=== PATIENT | female | born 1970 ===

== ENCOUNTER 2017-07-08 14:04 | Emergency (ER) | payer MEDICAID, OTHER ==
[2017-07-08 14:35] VITALS: BMI 20.9
[2017-07-08 14:40] VITALS: TEMP 98.4; O2SAT 100
--- NOTE | 2017-07-08 15:23 | ED PDOC ---
Arrival/HPI - General Chief Complaint: Cough, Cold, Congestion Time Seen by Provider: 07/08/17 14:40 Historian: Patient - History of Present Illness Narrative History of Present Illness (Text): 07/08/17 15:20 46yo female with PMHx of hypertension and hyperthyroid who present with 3weeks history of nonproductive cough, nasal congestion and facial pressure. Started having chest pain with cough few days ago. She did not take any medication for here symptoms. She denies fever, chills, sick contact, travel, LE edema, calf pain, dizziness, nausea, vomiting, sore throat, any other complaint. Past Medical History - Provider Review Nursing Documentation Reviewed: Yes - Infectious Disease Hx of Infectious Diseases: None - Tetanus Immunization Tetanus Immunization: Unknown - Past Medical History Past Medical History: No Previous - Cardiac Hx Cardiac Disorders: Yes Hx Hypertension: Yes (non med compliant) - Pulmonary Hx Respiratory Disorders: No - Neurological Hx Neurological Disorder: No - HEENT Hx HEENT Disorder: No - Renal Hx Renal Disorder: No - Endocrine/Metabolic Hx Endocrine Disorders: Yes Hx Hyperthyroidism: Yes - Hematological/Oncological Hx Blood Disorders: No - Integumentary Hx Dermatological Disorder: No - Musculoskeletal/Rheumatological Hx Musculoskeletal Disorders: No Hx Falls: No - Gastrointestinal Hx Gastrointestinal Disorders: No - Genitourinary/Gynecological Hx Genitourinary Disorders: No - Psychiatric Hx Psychophysiologic Disorder: Yes Hx Anxiety: Yes Hx Depression: Yes Hx Substance Use: No - Past Surgical History Past Surgical History: No Previous - Anesthesia Hx Anesthesia: Yes Hx Anesthesia Reactions: No Hx Malignant Hyperthermia: No - Suicidal Assessment Feels Threatened In Home Enviroment: Yes Family/Social History - Physician Review Nursing Documentation Reviewed: Yes Family/Social History: Unknown Family HX Smoking Status: Never Smoked Hx Alcohol Use: No Hx Substance Use: No Hx Substance Use Treatment: No Allergies/Home Meds Allergies/Adverse Reactions: Allergies No Known Allergies Allergy (Verified 01/15/16 01:50) Home Medications: Home Meds Medication Instructions Recorded Confirmed Metoprolol Tartrate [Lopressor] 1 tab PO BID 07/08/17 07/08/17 methIMAzole [Tapazole] 1 tab PO BID 07/08/17 07/08/17 Review of Systems - Physician Review All systems were reviewed & negative as marked: Yes - Review of Systems Constitutional: Normal Eyes: Normal ENT: Sinus Congestion Respiratory: Cough Cardiovascular: Normal Gastrointestinal: Normal Genitourinary Female: Normal Musculoskeletal: Normal Skin: Normal Neurological: Normal Endocrine: Normal Hemo/Lymphatic: Normal Psychiatric: Normal Physical Exam Vital Signs Reviewed: Yes Vital Signs Temp Pulse Resp BP Pulse Ox 07/08/17 14:39 98.4 F 98 H 18 127/88 100 Temperature: Afebrile Blood Pressure: Normal Pulse: Regular Respiratory Rate: Normal Appearance: Positive for: Well-Appearing, Non-Toxic, Comfortable Pain Distress: None Mental Status: Positive for: Alert and Oriented X 3 - Systems Exam Head: Present: Atraumatic, Normocephalic Pupils: Present: PERRL Extroacular Muscles: Present: EOMI Conjunctiva: Present: Normal Mouth: Present: Moist Mucous Membranes Pharnyx: Present: Normal. No: ERYTHEMA, EXUDATE Nose (Internal): Present: Normal Inspection, Other (Tenderness over b/l maxillary sinus) Neck: Present: Normal Range of Motion Respiratory/Chest: Present: Clear to Auscultation, Good Air Exchange. No: Respiratory Distress, Accessory Muscle Use, Wheezes, Decreased Breath Sounds, Rales, Retracting, Rhonchi, Tachypneic Cardiovascular: Present: Regular Rate and Rhythm, Normal S1, S2. No: Murmurs Abdomen: Present: Normal Bowel Sounds. No: Tenderness, Distention, Peritoneal Signs Back: Present: Normal Inspection Upper Extremity: Present: Normal Inspection. No: Cyanosis, Edema Lower Extremity: Present: Normal Inspection. No: Edema Neurological: Present: GCS=15, CN II-XII Intact, Speech Normal Skin: Present: Warm, Dry, Normal Color. No: Rashes Psychiatric: Present: Alert, Oriented x 3, Normal Insight, Normal Concentration Medical Decision Making ED Course and Treatment: 07/08/17 16:12 Pt presented for stated history. Hemodynamically stable and in no distress. CXR NAD. Pt will be tx and Dc home with Zpack and antitussive. Referred to her PMD/ clinic. TRT ED for any new or worsening symptoms. - RAD Interpretation Radiology Orders: 07/08/17 14:44 CHEST TWO VIEWS (PA/LAT) [RAD] Stat - Medication Orders Current Medication Orders: Discontinued Medications Azithromycin (Zithromax) 500 mg PO STAT STA PRN Reason: Protocol Stop: 07/08/17 16:11 Ibuprofen (Motrin Tab) 600 mg PO STAT STA Stop: 07/08/17 15:21 Last Admin: 07/08/17 15:29 Dose: 600 mg MAR Pain/Vitals Document 07/08/17 15:29 HI (Rec: 07/08/17 15:29 HI [id number]) Pain Reassessment Is This A Pain ReAssessment? No Disposition/Present on Arrival - Present on Arrival Any Indicators Present on Arrival: No History of DVT/PE: No History of Uncontrolled Diabetes: No Urinary Catheter: No History of Decub. Ulcer: No History Surgical Site Infection Following: None - Disposition Have Diagnosis and Disposition been Completed?: Yes Diagnosis: Upper respiratory infection, Headache Disposition: HOME/ ROUTINE Disposition Time: 16:15 Patient Plan: Discharge Condition: STABLE Discharge Instructions (ExitCare): Upper Respiratory Infection (ED) Additional Instructions: Follow up with your doctor Return to ED for any new or worsening symptoms Prescriptions: Azithromycin [Zithromax] 250 mg PO DAILY #4 tab Benzonatate [Tessalon Perle] 100 mg PO TID #30 capsule Ibuprofen [Motrin Tab] 600 mg PO Q6 #20 tab Referrals: PCP,NO [Primary Care Provider] - [place] up with primary [facility] [place] - Follow up with primary Forms: [employer] [facility] ([place])
--- NOTE | 2017-07-08 16:07 | RAD ---
HISTORY: cough COMPARISON: 01/15/2016 TECHNIQUE: Chest PA and lateral FINDINGS: LUNGS: No active pulmonary disease. PLEURA: No significant pleural effusion identified. No pneumothorax apparent. CARDIOVASCULAR: Normal. OSSEOUS STRUCTURES: No significant abnormalities. VISUALIZED UPPER ABDOMEN: Normal. OTHER FINDINGS: None. IMPRESSION: No active disease.
[2017-07-08] MEDS ORDERED: guaiFENesin 200 mg/10 ml Syrup UD PO STA (16:12)
[2017-07-08 16:54] VITALS: BP 125/82; PULSE 82; RESP 16
== END 2017-07-08 16:40 | disposition home or self-care (01) ==
LOC: ED 14:04
DX: J06.9 Acute upper respiratory infection, unspecified (principal); R51 Headache; I10 Essential (primary) hypertension; E05.90 Thyrotoxicosis, unspecified without thyrotoxic crisis or storm

== ENCOUNTER 2018-02-17 09:44 | Emergency (ER) | payer BC, MEDICAID ==
[2018-02-17 09:46] VITALS: BMI 20.9
[2018-02-17 10:13] VITALS: RESP 18
--- NOTE | 2018-02-17 11:05 | ED PDOC ---
Arrival/HPI - General Historian: Patient - History of Present Illness Time/Duration: > week (2 weeks) Symptom Onset: Gradual Symptom Course: Worsening Quality: Pressure, Fullness - General Chief Complaint: ENT Problem Time Seen by Provider: 02/17/18 10:54 - History of Present Illness Narrative History of Present Illness (Text): 02/17/18 10:59 47 year old with PMH of anxiety presents to the ED c/o L ear fullness and hearing loss x 2 weeks. Pt states she has had a gradual worsening of ear fullness for the last two weeks without pain. She has never experienced these symptoms before. Her right ear is not bothering her. Denies recent viral illness , fever, chills, ear pain, tinnitus, sinus pain, sore throat, SOB, rhinorrhea, vertigo, or dizziness. 02/17/18 11:36 (Jessica Bergeron) Past Medical History - Provider Review Nursing Documentation Reviewed: Yes - Infectious Disease Hx of Infectious Diseases: None - Tetanus Immunization Tetanus Immunization: Unknown - Reproductive Menopause: No - Past Medical History Past Medical History: No Previous - Cardiac Hx Cardiac Disorders: Yes Hx Hypertension: Yes (non med compliant) - Pulmonary Hx Respiratory Disorders: No - Neurological Hx Neurological Disorder: No - HEENT Hx HEENT Disorder: No - Renal Hx Renal Disorder: No - Endocrine/Metabolic Hx Endocrine Disorders: Yes Hx Hyperthyroidism: Yes - Hematological/Oncological Hx Blood Disorders: No - Integumentary Hx Dermatological Disorder: No - Musculoskeletal/Rheumatological Hx Musculoskeletal Disorders: No Hx Falls: No - Gastrointestinal Hx Gastrointestinal Disorders: No - Genitourinary/Gynecological Hx Genitourinary Disorders: No - Psychiatric Hx Psychophysiologic Disorder: Yes Hx Anxiety: Yes Hx Depression: Yes Hx Substance Use: No - Past Surgical History Past Surgical History: No Previous - Anesthesia Hx Anesthesia: Yes Hx Anesthesia Reactions: No Hx Malignant Hyperthermia: No - Suicidal Assessment Feels Threatened In Home Enviroment: Yes Family/Social History - Physician Review Nursing Documentation Reviewed: Yes Family/Social History: No Known Family HX Smoking Status: Never Smoked Hx Alcohol Use: No Hx Substance Use: No Hx Substance Use Treatment: No Allergies/Home Meds Allergies/Adverse Reactions: Allergies No Known Allergies Allergy (Verified 01/15/16 01:50) Home Medications: Home Meds Medication Instructions Recorded Confirmed No Known Home Med 02/17/18 02/17/18 Review of Systems - Review of Systems Constitutional: Normal. absent: Fevers Eyes: Normal ENT: Hearing Changes (L ear hearing loss), Other (L Ear fullness). absent: Tinnitus, TMJ Pain, Sore Throat, Rhinorrhea, Epistaxis, Sinus Congestion Respiratory: Normal Cardiovascular: Normal Skin: Normal Neurological: absent: Dizziness, Disequilibrium Hemo/Lymphatic: absent: Adenopathy Physical Exam Vital Signs Reviewed: Yes Temperature: Afebrile Blood Pressure: Hypertensive (Anxiety) Pulse: Regular Respiratory Rate: Normal Appearance: Positive for: Well-Appearing, Non-Toxic, Other (Anxious) Pain Distress: None - Systems Exam Head: Present: Atraumatic Conjunctiva: Present: Normal Ears: Present: Other (R ear: TM non-erythematous, non bulging, normal cone of light. canal non-eematous, non-erythmeatous. free of cerumen. L ear: Cerumen impaction obscuring view of TM. Canal non-edematous, non-erythematous. ) Mouth: Present: Moist Mucous Membranes Pharnyx: Present: Normal Nose (Internal): Present: Normal Inspection, Moist. No: Rhinorrhea Neck: Present: Normal Range of Motion Respiratory/Chest: Present: Clear to Auscultation, Good Air Exchange. No: Respiratory Distress, Accessory Muscle Use Cardiovascular: Present: Regular Rate and Rhythm, Normal S1, S2. No: Murmurs Neurological: Present: Gait Normal Skin: Present: Warm, Dry, Normal Color. No: Rashes Lymphatic: No: Cervical Adenopathy Psychiatric: Present: Alert, Oriented x 3, Normal Insight, Normal Concentration , Anxious Vital Signs Temp Pulse Resp BP Pulse Ox 02/17/18 11:21 80 18 159/100 H 100 02/17/18 10:09 98.6 F 78 18 204/113 H 99 Medical Decision Making Re-evaluation Time: 11:16 Reassessment Condition: Improved ED Course and Treatment: 02/17/18 11:25 Disimpacted left ear impacted cerumen with irrigation with excellent results. ( Harley Alvarez) 02/17/18 11:12 47 y/o female presenting with L ear fullness and hearing loss x 2 weeks. Denies fever, ear pain, URI sx, tinnitus, vertigo, dizziness. Found to have L-sided cerumen impaction. Dr. Alvarez successfully performed Cerumen disimpaction on L ear using peroxide and normal saline mix 50/50. Pt tolerated well, no vertigo or dizziness. Will retake blood pressure before discharge. BP retake: 159/100. BP has significantly decreased. Discussed possible complications of chronic HTN with pt, advised her to followup with Dr. Ibrahim' s clinic for BP checks and possible prescription for anti-hypertensive medication. Pt educated on signs and symptoms of cerumen impaction. Pt told to return if high fever, pain develops, or for sudden hearing loss. Followup with Dr. Ibrahim's clinic for BP checks. [employer] card given. 02/17/18 11:51 (Jessica Bergeron) Disposition/Present on Arrival - Present on Arrival Any Indicators Present on Arrival: No History of DVT/PE: No History of Uncontrolled Diabetes: No Urinary Catheter: No History of Decub. Ulcer: No History Surgical Site Infection Following: None - Disposition Have Diagnosis and Disposition been Completed?: Yes Disposition Time: 10:40 Patient Plan: Discharge - Disposition Diagnosis: Cerumen impaction, Elevated blood pressure reading Disposition: HOME/ ROUTINE Patient Problems: Current Active Problems Problem Status Onset Cerumen impaction Acute Elevated blood pressure reading Acute Condition: IMPROVED Discharge Instructions (ExitCare): High Blood Pressure in Adults, Ear Wax Impaction Print Language: PALAUAN Additional Instructions: Return if high fevers, severe headache, vomiting, sudden loss of hearing, ear pain, severe vertigo. Followup with [facility] for blood pressure checks and as needed. Followup with ENT as needed. Referrals: Jerri Ibrahim MD [Medical Doctor] - Follow up with primary [employer] [Outside] - Follow up with primary Philipp Rojas DO [Staff Provider] - Follow up with primary Forms: WORK NOTE, [facility] (Citizen Of [place])
[2018-02-17 11:22] VITALS: BP 159/100; PULSE 80; O2SAT 100
[2018-02-17 11:55] VITALS: TEMP 98.5
== END 2018-02-17 11:57 | disposition home or self-care (01) ==
LOC: ED 09:44
DX: H61.22 Impacted cerumen, left ear (principal); I10 Essential (primary) hypertension; Z91.19 Patient's noncompliance with other medical treatment and regimen

== ENCOUNTER 2018-02-18 22:36 | Observation (INO) | payer MEDICAID ==
[2018-02-18 22:43] VITALS: BMI 20.1
--- NOTE | 2018-02-19 01:49 | ED PDOC ---
Arrival/HPI - General Chief Complaint: High Blood Pressure Time Seen by Provider: 02/18/18 22:46 Historian: Patient - History of Present Illness Narrative History of Present Illness (Text): 02/19/18 04:06 47 year old female, with no significant past medical history, who presents to the emergency department complaining of headache discomfort and high blood pressure. Patient notes she is non-compliant with her medication because it is too expensive. Patient denies any fevers, chills, chest pain, shortness of breath, abdominal pain, nausea, vomiting, diarrhea, back pain, neck pain, urinary symptoms, dizziness, or any other complaint. Time/Duration: Prior to Arrival Symptom Course: Unchanged Activities at Onset: Light Context: Home Past Medical History - Provider Review Nursing Documentation Reviewed: Yes - Infectious Disease Hx of Infectious Diseases: None - Tetanus Immunization Tetanus Immunization: Unknown - Past Medical History Past Medical History: No Previous - Cardiac Hx Cardiac Disorders: Yes Hx Hypertension: Yes (non med compliant) - Pulmonary Hx Respiratory Disorders: No - Neurological Hx Neurological Disorder: No - HEENT Hx HEENT Disorder: No - Renal Hx Renal Disorder: No - Endocrine/Metabolic Hx Endocrine Disorders: Yes Hx Hyperthyroidism: Yes - Hematological/Oncological Hx Blood Disorders: No - Integumentary Hx Dermatological Disorder: No - Musculoskeletal/Rheumatological Hx Musculoskeletal Disorders: No Hx Falls: No - Gastrointestinal Hx Gastrointestinal Disorders: No - Genitourinary/Gynecological Hx Genitourinary Disorders: No - Psychiatric Hx Psychophysiologic Disorder: Yes Hx Anxiety: Yes Hx Depression: Yes Hx Substance Use: No - Past Surgical History Past Surgical History: No Previous - Anesthesia Hx Anesthesia: Yes Hx Anesthesia Reactions: No Hx Malignant Hyperthermia: No - Suicidal Assessment Feels Threatened In Home Enviroment: Yes Family/Social History - Physician Review Nursing Documentation Reviewed: Yes Family/Social History: Unknown Family HX Smoking Status: Never Smoked Hx Alcohol Use: No Hx Substance Use: No Hx Substance Use Treatment: No Allergies/Home Meds Allergies/Adverse Reactions: Allergies No Known Allergies Allergy (Verified 01/15/16 01:50) Home Medications: Home Meds Medication Instructions Recorded Confirmed No Known Home Med 02/17/18 02/18/18 Review of Systems - Physician Review All systems were reviewed & negative as marked: Yes - Review of Systems Constitutional: Normal Eyes: Normal ENT: Normal Respiratory: Normal. absent: SOB, Cough Cardiovascular: Normal. absent: Chest Pain Gastrointestinal: Normal. absent: Abdominal Pain Genitourinary Female: Normal. absent: Dysuria, Frequency Musculoskeletal: Normal. absent: Back Pain, Neck Pain Skin: Normal. absent: Rash Neurological: Headache. absent: Dizziness Endocrine: Normal Hemo/Lymphatic: Normal Psychiatric: Normal Physical Exam Vital Signs Reviewed: Yes Vital Signs Temp Pulse Resp BP Pulse Ox 02/19/18 04:32 82 16 139/84 99 02/19/18 03:08 186/105 H 02/19/18 01:35 89 187/118 H 02/19/18 01:27 98.2 F 92 H 18 187/118 H 99 02/18/18 22:44 98.4 F 102 H 18 187/108 H 98 Temperature: Afebrile Blood Pressure: Hypertensive Pulse: Tachycardic Respiratory Rate: Normal Appearance: Positive for: Well-Appearing, Non-Toxic, Comfortable Pain Distress: None Mental Status: Positive for: Alert and Oriented X 3 - Systems Exam Head: Present: Atraumatic, Normocephalic Pupils: Present: PERRL Extroacular Muscles: Present: EOMI Conjunctiva: Present: Normal Mouth: Present: Moist Mucous Membranes Neck: Present: Normal Range of Motion Respiratory/Chest: Present: Clear to Auscultation, Good Air Exchange. No: Respiratory Distress, Accessory Muscle Use Cardiovascular: Present: Regular Rate and Rhythm, Normal S1, S2. No: Murmurs Abdomen: No: Tenderness, Distention, Peritoneal Signs Back: Present: Normal Inspection Upper Extremity: Present: Normal Inspection. No: Cyanosis, Edema Lower Extremity: Present: Normal Inspection. No: Edema Neurological: Present: GCS=15, CN II-XII Intact, Speech Normal Skin: Present: Warm, Dry, Normal Color. No: Rashes Psychiatric: Present: Alert, Oriented x 3, Normal Insight, Normal Concentration Medical Decision Making ED Course and Treatment: 02/19/18 01:49 Impression: 47 year old female presents to the emergency department complaining of headache discomfort and hypertension. Plan: -- Head CT -- EKG -- Catapres -- Tylenol -- Reassess and disposition Progress Notes: CT Head reviewed, shows: IMPRESSION: No acute CT intracranial abnormalities 02/19/18 04:50 Case discussed with house physician, dr. rivas, and medical records coordinator, who is aware and agrees with plan. Given pt's noncompliance with medication, inability to pay for medication, and under controlled htn, pt will be placed on observation/social service consult. - Lab Interpretations Lab Results: 02/19/18 01:30 02/19/18 01:30 Lab Results 02/19/18 01:30: WBC 7.0 D, RBC 4.47, Hgb 10.4 L, Hct 33.3 L, MCV 74.5 L, MCH 23.3 L, MCHC 31.2, RDW 18.5 H, Plt Count 639 H, MPV 8.7 02/19/18 01:30: Sodium 140, Potassium 3.6, Chloride 103, Carbon Dioxide 25, Anion Gap 15, BUN 7, Creatinine 0.5 L, Est GFR ( Amer) > 60, Est GFR (Non -Af Amer) > 60, Random Glucose 101, Calcium 9.5, Total Bilirubin 0.3, AST 39 H, ALT 32, Alkaline Phosphatase 163 H, Total Protein 7.6, Albumin 4.2, Globulin 3.4 , Albumin/Globulin Ratio 1.2 - RAD Interpretation Radiology Orders: 02/18/18 23:19 HEAD W/O CONTRAST [CT] Stat - Medication Orders Current Medication Orders: Discontinued Medications Acetaminophen (Tylenol 325mg Tab) 650 mg PO STAT STA Stop: 02/19/18 02:39 Last Admin: 02/19/18 02:44 Dose: 650 mg [facility] Pain/Vitals Document 02/19/18 02:44 (Rec: 02/19/18 02:44 [id number] Pain Reassessment Is This A Pain ReAssessment? Yes Sleep Is patient sleeping during reassessment? No Presence of Pain Presence of Pain Yes Pain Scale Used Pain Scale Used Numeric Clonidine HCl (Catapres) 0.2 mg PO STAT STA Stop: 02/18/18 23:19 Last Admin: 02/19/18 01:35 Dose: 0.2 mg ADAM Pulse and Blood Pressure Document 02/19/18 01:35 (Rec: 02/19/18 01:36 [id number] Pulse Pulse Rate (60-90 beats/min) 89 Blood Pressure Blood Pressure (100/60-150/90 mm Hg) 187/118 Clonidine HCl (Catapres) 0.2 mg PO STAT STA Stop: 02/19/18 04:10 - Scribe Statement The provider has reviewed the documentation as recorded by the Scribe Farzaneh Ayala All medical record entries made by the Scribe were at my direction and personally dictated by me. I have reviewed the chart and agree that the record accurately reflects my personal performance of the history, physical exam, medical decision making, and the department course for this patient. I have also personally directed, reviewed, and agree with the discharge instructions and disposition. Disposition/Present on Arrival - Present on Arrival Any Indicators Present on Arrival: No History of DVT/PE: No History of Uncontrolled Diabetes: No Urinary Catheter: No History of Decub. Ulcer: No History Surgical Site Infection Following: None - Disposition Have Diagnosis and Disposition been Completed?: Yes Diagnosis: Uncontrolled hypertension, Headache Disposition: HOSPITALIZED Disposition Time: 04:49 Condition: STABLE Referrals: Deyanira Wilkins MD [Primary Care Provider] - Follow up with primary Forms: [employer] [facility] ([place])
[2018-02-19 02:07] LABS: ALB/GLOB RATIO 1.2 (1.1-1.8); ALBUMIN 4.2 g/dL (3.0-4.8); ALT/SGPT 32 U/L (7-56); AST/SGOT 39 U/L (14-36); BLOOD UREA NITROGEN 7 mg/dL (7-21); CALCIUM 9.5 mg/dL (8.4-10.5); GFR NON-AFRICAN AMERICAN > 60
[2018-02-19 02:15] LABS: HEMOGLOBIN 10.4 g/dL (12.0-16.0); MEAN CELL VOLUME 74.5 fl (80.0-105.0); MEAN CORPUSCULAR HEMOGLOBIN 23.3 pg (25.0-35.0); MEAN CORPUSCULAR HGB CONC 31.2 g/dl (31.0-37.0); MEAN PLATELET VOLUME 8.7 fl (7.0-11.0); RBC 4.47 10^6/uL (3.5-6.1); RED CELL DISTRIBUTION WIDTH 18.5 % (11.5-14.5)
--- NOTE | 2018-02-19 04:48 | CP.PCM.HP ---
<Joanne Fernandez - Last Filed: 02/19/18 04:44> History of Present Illness - History of Present Illness History of Present Illness: PGY-3 H&P for Dr Melissa Stanton CC: headache and high blood pressure Patient is a 47 y/o with PMH of htn complaining of few days of headache and high blood pressure. Patient states she run out of her Lopressor and was not able to afford the medication. Admits to headache, and fatigue. Denies dizziness , lightheadedness, no nausea, vomiting or diarrhea. No fever or chills. No abdominal pain, denies cp, or sob. No changes in vision, no floaters. Denies photophobia. Denies weakness. In the ED, BP was 187/108, patient was given 0.2 mg clonidine x1 with improvement in the BP. Pmhx: as stated above PSH: denies FMH: denies Social: denies tobacco, alcohol, and illicit drug use. Lives with sister. Home meds: none Allergy: NKDA. Present on Admission - Present on Admission Any Indicators Present on Admission: No History of DVT/PE: No History of Uncontrolled Diabetes: No Urinary Catheter: No Decubitus Ulcer Present: No Review of Systems - Review of Systems All systems: reviewed and no additional remarkable complaints except Review of Systems: 12 point ROS reviewed, all negative except as per HPI. Past Patient History - Infectious Disease Hx of Infectious Diseases: None - Tetanus Immunizations Tetanus Immunization: Unknown - Past Social History Smoking Status: Never Smoked Alcohol: None Drugs: Denies Home Situation {Lives}: With Family - CARDIAC Hx Cardiac Disorders: Yes Hx Hypertension: Yes (non med compliant) - PULMONARY Hx Respiratory Disorders: No - NEUROLOGICAL Hx Neurological Disorder: No - HEENT Hx HEENT Problems: No - RENAL Hx Chronic Kidney Disease: No - ENDOCRINE/METABOLIC Hx Endocrine Disorders: Yes Hx Hyperthyroidism: Yes - HEMATOLOGICAL/ONCOLOGICAL Hx Blood Disorders: No - INTEGUMENTARY Hx Dermatological Problems: No - MUSCULOSKELETAL/RHEUMATOLOGICAL Hx Musculoskeletal Disorders: No Hx Falls: No - GASTROINTESTINAL Hx Gastrointestinal Disorders: No - GENITOURINARY/GYNECOLOGICAL Hx Genitourinary Disorders: No - PSYCHIATRIC Hx Psychophysiologic Disorder: Yes Hx Anxiety: Yes Hx Depression: Yes Hx Substance Use: No - SURGICAL HISTORY Hx Surgeries: Yes (ex lap) - ANESTHESIA Hx Anesthesia: Yes Hx Anesthesia Reactions: No Hx Malignant Hyperthermia: No Meds Allergies/Adverse Reactions: Allergies Allergy/AdvReac Type Severity Reaction Status Date / Time No Known Allergies Allergy Verified 01/15/16 01:50 Physical Exam - Constitutional Appears: In Acute Distress - Head Exam Head Exam: ATRAUMATIC, NORMAL INSPECTION, NORMOCEPHALIC - Eye Exam Eye Exam: EOMI, Normal appearance Pupil Exam: NORMAL ACCOMODATION - ENT Exam ENT Exam: Mucous Membranes Moist, Normal Exam - Neck Exam Neck exam: Positive for: Normal Inspection - Respiratory Exam Respiratory Exam: Clear to Auscultation Bilateral, NORMAL BREATHING PATTERN - Cardiovascular Exam Cardiovascular Exam: REGULAR RHYTHM, RRR, +S1, +S2. absent: Bradycardia, Tachycardia, Gallop, Irregular Rhythm, JVD, Rubs, +S4, Systolic Murmur - GI/Abdominal Exam GI & Abdominal Exam: Normal Bowel Sounds, Soft. absent: Distended, Firm, Guarding, Tenderness - Extremities Exam Extremities exam: Positive for: normal inspection - Back Exam Back exam: NORMAL INSPECTION - Neurological Exam Neurological exam: Alert, CN II-XII Intact, Oriented x3, Reflexes Normal Additional comments: No motor deficit, 5/5 motor strength with flexion and extension in all 4 extremities. No focal deficit - Psychiatric Exam Psychiatric exam: Normal Affect, Normal Mood - Skin Skin Exam: Dry, Intact, Normal Color, Warm Results - Vital Signs Recent Vital Signs: Last Vital Signs Temp 98.2 F 02/19/18 01:27 Pulse 82 02/19/18 04:32 Resp 16 02/19/18 04:32 BP 139/84 02/19/18 04:32 Pulse Ox 99 02/19/18 04:32 - Labs Result Diagrams: 02/19/18 01:30 02/19/18 01:30 Labs: Laboratory Results - last 24 hr 02/19/18 02/19/18 01:30 01:30 WBC 7.0 D RBC 4.47 Hgb 10.4 L Hct 33.3 L MCV 74.5 L MCH 23.3 L MCHC 31.2 RDW 18.5 H Plt Count 639 H MPV 8.7 Sodium 140 Potassium 3.6 Chloride 103 Carbon Dioxide 25 Anion Gap 15 BUN 7 Creatinine 0.5 L Est GFR ( Amer) > 60 Est GFR (Non-Af Amer) > 60 Random Glucose 101 Calcium 9.5 Total Bilirubin 0.3 AST 39 H ALT 32 Alkaline Phosphatase 163 H Total Protein 7.6 Albumin 4.2 Globulin 3.4 Albumin/Globulin Ratio 1.2 - EKG Data EKG Interpreted by: Myself EKG shows normal: Sinus rhythm Rate: Normal (with prolonged QTC to 501) Assessment & Plan - Assessment and Plan (Free Text) Assessment: Patient is a 47 y/o with pmhx of htn presenting with headache and hypertensive urgency due to medication non compliance. Plan: 1) Hypertensive urgency - s/p clonidine .2 mg x1 in the ED - SBP currently in the 130s - Will observe on tele, - obtain utox - EKG with prolonged QTC - will add tsh, and mag - If utox normal, will continue with metoprolol or cheaper alternative 2) Headache likely due to hypertensive urgency - CT head pending - no focal neurological deficit on exam - control BP and Tylenol prn for headache. 3) Microcytic anemia likely iron deficiency due to thrombocytosis - will order iron panel 4) Prolonged QTc on ekg - will replete potassium to 4, - will add mag and trop - Repeat ekg 5) DVT/GI prophylaxis: VTe device and pepcid - Date & Time Date: 02/19/18 Time: 04:55 <Melissa Stanton - Last Filed: 02/19/18 06:59> Results - Vital Signs Recent Vital Signs: Last Vital Signs Temp 98.2 F 02/19/18 06:46 Pulse 86 02/19/18 06:46 Resp 16 02/19/18 06:46 BP 126/74 02/19/18 06:46 Pulse Ox 99 02/19/18 06:09 - Labs Result Diagrams: 02/19/18 01:30 02/19/18 01:30 Labs: Laboratory Results - last 24 hr 02/19/18 02/19/18 05:30 05:30 Magnesium 2.0 Iron 20 L TIBC 363 % Saturation 5 L Troponin I < 0.01
[2018-02-19] MEDS ORDERED: Potassium Chloride 20 mEq ER Tab PO STA (05:07)
[2018-02-19 06:15] LABS: IRON 20 ug/dL (45-180)
[2018-02-19 06:24] LABS: % IRON SATURATION 5 % (20-55); TOTAL IRON BINDING CAPACITY 363 ug/dL (265-497); TROPONIN I < 0.01 ng/mL
--- NOTE | 2018-02-19 08:38 | CT ---
Date of service: 02/19/2018 PROCEDURE: CT HEAD WITHOUT CONTRAST. HISTORY: headache COMPARISON: 09/15/2014 TECHNIQUE: Axial computed tomography images were obtained through the head/brain without intravenous contrast. Radiation dose: Total exam DLP = 896 mGy-cm. This CT exam was performed using one or more of the following dose reduction techniques: Automated exposure control, adjustment of the mA and/or kV according to patient size, and/or use of iterative reconstruction technique. FINDINGS: HEMORRHAGE: No intracranial hemorrhage. BRAIN: No mass effect or edema. No atrophy or chronic microvascular ischemic changes. VENTRICLES: Unremarkable. No hydrocephalus. CALVARIUM: Unremarkable. PARANASAL SINUSES: Unremarkable as visualized. No significant inflammatory changes. MASTOID AIR CELLS: Unremarkable as visualized. No inflammatory changes. OTHER FINDINGS: The report concurs with the preliminary [facility] report IMPRESSION: Normal CT of the Head.
--- NOTE | 2018-02-19 09:33 | CARD ---
APPROVED REPORT Date of service: 02/18/2018 EKG Measurement Heart [id number] <Conclusion> Normal sinus rhythm Prolonged QT Abnormal ECG
[2018-02-19 11:16] LABS: FERRITIN 8.7 ng/mL
[2018-02-19] MEDS: methIMAzole 5 MG TAB PO SCH (17:45)
--- NOTE | 2018-02-19 17:53 | CON ---
DATE: 02/19/2018ENDOCRINOLOGY CONSULT LOCATION: In room 574. HISTORY OF PRESENT ILLNESS: This is a 47-year-old female with known history of hypertension, who ran out of her medications, presenting here with bifrontal headaches and generalized body weakness with progressive bouts of dizziness and lightheadedness and was admitted with accelerated hypertension and is now also being referred for evaluation of abnormal thyroid function studies. PAST MEDICAL HISTORY: The patient has been on Lopressor for management of her hypertensive condition, but apparently ran out because of financial constraints. However, it is quite remarkable to note that these medications are actually very affordable and they only cost 10 dollars for a 3-month supply in [facility] or [facility] pharmacies. FAMILY HISTORY: Positive for hypertension, heart disease. SOCIAL HISTORY: The patient has a supportive family. No known substance use. REVIEW OF SYSTEMS: Admits to generalized body weakness with episodic bouts of dizziness and lightheadedness, worse on the day of admission. No chest pains or palpitations or PNDs, but admits to progressive shortness of breath, especially on exertion. Her oral intake has been variable with occasional nausea and dyspepsia. No recent alterations of bowel and urinary patterns. PHYSICAL EXAMINATION: GENERAL: This is an average-built female, in no apparent distress. VITAL SIGNS: Blood pressure of 180/110; pulse of 100 beats per minute, regular; temperature 98; respirations 20; height is 5 feet 6 inches; weight is 125 pounds. HEENT: Head normocephalic. Eyes anicteric with pink conjunctivae. Funduscopy not possible at this time. Ears, nose and throat otherwise normal. NECK: Thyroid gland shows mild nodular thyromegaly with no overt palpable thyroid nodules or cervical adenopathy otherwise. She has positive thyroid bruits as noted bilaterally. CARDIOPULMONARY: Some adynamic precordium. S1, S2 are rapid and regular. LUNGS: Clear to auscultation. ABDOMEN: Flat, soft with positive bowel sounds. EXTREMITIES: No peripheral edema. Pulses are +2 bilaterally. LABORATORY DATA: Her chemistries showed a BUN of 7, sodium 140, potassium 3.6, chloride 103, CO2 of 25, glucose 101 and creatinine 0.5. Her thyroid study showed a free T4 of 3.19 and a TSH of less than 0.02 and a subsequent total thyroxine obtained today as a stat request showed a very elevated thyroxine value of 20.8. ASSESSMENT: This is a 47-year-old female presenting here with accelerated hypertension and concomitant overt thyrotoxicosis with marked hyperthyroidism both historically, clinically and biochemically, most likely related to underlying Graves disease and autoimmune thyroiditis. She also has a diffuse toxic goiter with no overt compressive or obstructive manifestations thereof. PLAN OF MANAGEMENT: We will increase her Tapazole, which was initially given as 5 mg b.i.d. because of the pending thyroxine value and since we do have now the total thyroxine of 20.8 milliunits/mL, then we can titrate her dosing regimen to much higher dose of 20 mg p.o. b.i.d. after meals to start today. We will titrate incrementally as indicated to optimize metabolic control. We will also obtain a thyroid ultrasound electively prior to her discharge or even upon discharge accordingly. We will obtain a thyroid stimulating immunoglobulin and a thyroid peroxidase antibody with a thyroglobulin level to confirm and/or indicate the presence of underlying thyroid autoimmunity. We will obtain serial chemistries and supplement accordingly as needed. We will follow. Imani Prasad MD
[2018-02-19] MEDS ORDERED: methIMAzole 5 MG TAB PO SCH (18:00)
[2018-02-20 07:57] LABS: BASO # 0.01 K/mm3 (0.0-2.0); BASO % 0.2 % (0.0-3.0); EOS # 0.1 (0.0-0.7); EOS % 2.5 % (1.5-5.0); GRAN # 1.8 (1.4-6.5); GRAN % 44.3 % (50.0-68.0); HEMOGLOBIN 9.7 g/dL (12.0-16.0); LYMPH # 1.4 (1.2-3.4); LYMPH % 35.5 % (22.0-35.0); MEAN CELL VOLUME 76.2 fl (80.0-105.0); MEAN CORPUSCULAR HEMOGLOBIN 23.3 pg (25.0-35.0); MEAN CORPUSCULAR HGB CONC 30.6 g/dl (31.0-37.0); MEAN PLATELET VOLUME 8.7 fl (7.0-11.0); MONO # 0.7 (0.1-0.6); MONO % 17.5 % (1.0-6.0); RBC 4.16 10^6/uL (3.5-6.1); RED CELL DISTRIBUTION WIDTH 18.9 % (11.5-14.5); WHITE BLOOD COUNT 4.1 10^3/ul (4.5-11.0)
[2018-02-20 07:59] LABS: ALB/GLOB RATIO 1.1 (1.1-1.8); ALBUMIN 3.5 g/dL (3.0-4.8); ALT/SGPT 25 U/L (7-56); AST/SGOT 36 U/L (14-36); BLOOD UREA NITROGEN 11 mg/dL (7-21); CALCIUM 9.1 mg/dL (8.4-10.5); GFR NON-AFRICAN AMERICAN > 60
[2018-02-20 08:14] LABS: FREE T4 2.62 ng/dL (0.78-2.19); T4 17.9 ug/dL (5.5-11.0)
[2018-02-20] MEDS: methIMAzole 5 MG TAB PO SCH ×2 (11:10→19:09)
--- NOTE | 2018-02-20 11:29 | CP.PCM.PN ---
<Concetta Daley - Last Filed: 02/20/18 20:17> Subjective - Date & Time of Evaluation Date of Evaluation: 02/20/18 Time of Evaluation: 10:20 - Subjective Subjective: PGY-1 Concetta Daley D.O. Medicine progress note for Dr. Stone's service: Patient was seen and examined this morning. No over night events reported. Patient states the Vistaril helped her anxiety and she was able to sleep well. Her appetite had improved. She is still depressed but not tearful on exam. Her JANG resolved. She denies chest pain, palpitations, SOB, and lightheadedness/ dizziness. Objective - Vital Signs/Intake and Output Vital Signs (last 24 hours): Temp Pulse Resp BP Pulse Ox 97.8 F 73 18 152/91 H 99 02/20/18 06:00 02/20/18 06:00 02/20/18 06:00 02/20/18 06:00 02/20/18 06:00 - Medications Medications: Current Medications Acetaminophen (Tylenol 325mg Tab) 650 mg PO Q6H PRN PRN Reason: Headache Last Admin: 02/20/18 11:09 Dose: 650 mg Famotidine (Pepcid) 40 mg PO HS IESHA Last Admin: 02/19/18 21:51 Dose: 40 mg Hydroxyzine Pamoate (Vistaril) 25 mg PO Q8 PRN; Protocol PRN Reason: Anxiety Last Admin: 02/20/18 11:12 Dose: 25 mg Methimazole (Tapazole) 20 mg PO BID IESHA Last Admin: 02/20/18 11:10 Dose: 20 mg - Constitutional Appears: No Acute Distress, Younger Than Stated Age - Head Exam Head Exam: ATRAUMATIC, NORMAL INSPECTION - Eye Exam Eye Exam: EOMI, Normal appearance, PERRL - ENT Exam ENT Exam: Mucous Membranes Moist, Normal Exam - Neck Exam Neck Exam: Normal Inspection - Respiratory Exam Respiratory Exam: Clear to Ausculation Bilateral, NORMAL BREATHING PATTERN - Cardiovascular Exam Cardiovascular Exam: REGULAR RHYTHM, +S1, +S2 - GI/Abdominal Exam GI & Abdominal Exam: Soft, Normal Bowel Sounds. absent: Tenderness - Rectal Exam Rectal Exam: Deferred - Extremities Exam Extremities Exam: Normal Capillary Refill, Normal Inspection - Back Exam Back Exam: NORMAL INSPECTION. absent: tenderness - Neurological Exam Neurological Exam: Alert, Awake, CN II-XII Intact, Oriented x3 Neuro motor strength exam: Left Upper Extremity: 5, Right Upper Extremity: 5, Left Lower Extremity: 5, Right Lower Extremity: 5 - Psychiatric Exam Psychiatric exam: Depressed - Skin Skin Exam: Dry, Intact, Normal Color, Warm Assessment and Plan - Assessment and Plan (Free Text) Assessment: Patient is a 47 yo female who presented with JANG. She was found to have elevated BP. Patient subsequently complained of significant depression and anxiety. Patient has hyperthyroidism. She is being treated by endocrinology. Psychiatry is also consulted. Plan: HTN urgency with associated JANG, resolved- 2/2 hyperthyroidism - CT head: negative - Tylenol 650 mg PO q6hrs PRN - Methimazole 20 mg PO BID - Endocrinology consulted (Osmar) Depression and anxiety- patient reports history of Ativan OD and inpatient psych admissions - Ativan 0.25 mg PO AMHS PRN - Paxil 10 mg PO QHS - Psychiatry consulted (Vel) Vitamin D deficiency - Vit D 50,000 weekly IVF: not indicated Diet: heart healthy GI ppx: Pepcid 40 mg PO QHS VTE ppx: SCDs Code status: full code Case was discussed with attending, Dr. Stone. <Jazzy Stone - Last Filed: 02/21/18 12:32> Objective - Vital Signs/Intake and Output Vital Signs (last 24 hours): Temp Pulse Resp BP Pulse Ox 98.8 F 89 20 168/97 H 95 02/21/18 08:20 02/21/18 08:20 02/21/18 08:20 02/21/18 08:20 02/21/18 08:20 Intake and Output: 02/21/18 02/21/18 06:59 18:59 Intake Total 780 Balance 780 - Medications Medications: Current Medications Acetaminophen (Tylenol 325mg Tab) 650 mg PO Q6H PRN PRN Reason: Headache Last Admin: 02/20/18 11:09 Dose: 650 mg Ergocalciferol (Drisdol 50,000 Intl Units Cap) 1 cap PO Q7D IESHA Last Admin: 02/20/18 19:10 Dose: 1 cap Famotidine (Pepcid) 40 mg PO HS IESHA Last Admin: 02/20/18 22:46 Dose: 40 mg Lorazepam (Ativan) 0.25 mg PO AMHS PRN; Protocol PRN Reason: Anxiety Last Admin: 02/21/18 05:30 Dose: 0.25 mg Methimazole (Tapazole) 20 mg PO BID [facility] Last Admin: 02/21/18 10:09 Dose: 20 mg Paroxetine HCl (Paxil) 10 mg PO HS [facility] Last Admin: 02/20/18 22:47 Dose: 10 mg - Labs Labs: 02/21/18 07:00 02/21/18 07:00 Attending/Attestation - Attestation I have personally seen and examined this patient.: Yes I have fully participated in the care of the patient.: Yes I have reviewed all pertinent clinical information, including history, physical exam and plan: Yes Notes (Text): Patient seen and examined by me at 11:50AM with resident 02/20/18. Case including HPI, physical exam, and assessment and plan discussed with resident. Agree with above with following additions/corrections. Patient is a 47 year old female with past medical history significant for hypertension that presented to the emergency room with headache and high blood pressure. Patient is French speaking. Applications Project Manager used. Patient states that she is feeling ok. Patient is feeling very depressed. States she has a problem with a ross I was supposed to live with that does not want me to live with him now. Patient states she has a history of depression and used to take medications. However, she stopped them because she took too many one day. Patient denies any suicidal ideations. No homicidal ideations. Patient states headache has resolved. No chest pain or shortness of breath. No dizziness or change in vision. No fevers or chills. No nausea, vomiting, or abdominal pain. No dysuria. No diarrhea or constipation. Patient states she is not taking any medications at home. Physical exam: General: Awake and alert lying in bed in no acute distress HEENT: Normocephalic atraumatic. Pupils equal reactive. Extraocular muscles intact. No scleral icterus. No pharyngeal erythema or exudate appreciated. Neck is supple. Cardiovascular: Normal rhythm. Normal S1, S2. No murmurs, rubs, or gallops appreciated Pulmonary: Normal respiratory effort. No rhonchi, rales or wheezing appreciated. Gastrointestinal: Soft, nondistended. Nontender. Positive bowel sounds all 4 quadrants, no guarding. Musculoskeletal: Normal range of motion all extremities. No edema appreciated. No calf tenderness. No CVA tenderness. Central nervous system: AAOx3,CN 2-12 grossly intact. 5/5 muscle strength all extremities. Dermatologic: Skin warm and dry Assessment and plan: Patient is a 47 year old female with past medical history significant for hypertension that presented to the emergency room with headache and high blood pressure. 1. Hypertensive urgency. Resolved. Patient is normotensive. Patient is not taking any medications at home. Will monitor for now and add medications if needed. 2. Headache. Resolved. Likely secondary to #1. Head CT per radiologist shows normal CT of head. 3. Depression and anxiety. Psychiatry consulted, follow up recommendations. Started on Vistaril prn for now. 4. Hyperthyroidism. Endocrinology consulted, recommendations appreciated. Started on methimazole. 5. Vitamin D deficiency. Started on 50,000IU weekly. Patient will need repeat blood work to follow up levels as an outpatient. Case discussed in detail with patient regarding current diagnosis and treatment plan.
--- NOTE | 2018-02-20 13:13 | PN ---
DATE: 02/20/2018 ENDOCRINOLOGY FOLLOWUP NOTE This is a 47-year-old female presenting here with accelerated hypertension and also, an incidental finding of marked hyperthyroidism and is now being followed closely for metabolic management. Her repeat chemistries today showed a BUN of 11, sodium 140, potassium 3.7, chloride 106, CO2 25, glucose 88 and creatinine 0.5. Her thyroid levels showed a repeat thyroxine of 17.9 mcg/dL with a free T4 of 2.62 and a TSH of less than 0.02. ASSESSMENT: This is a 47-year-old female with overt thyrotoxicosis presenting here with marked hyperthyroidism both historically, clinically and biochemically with hyperadrenergic and constitutional manifestations of the same, most likely related to underlying autoimmune thyroiditis, i.e., Graves disease. PLAN OF MANAGEMENT: We will continue the Tapazole given as 20 mg b.i.d. as ordered. We will obtain serial chemistries and supplement accordingly as needed. We will also obtain serial thyroid studies and titrate her dose regimen accordingly. We also sent out thyroid antibodies, which will confirm and/or indicate the presence of underlying thyroid autoimmunity. We will follow with you. Imani Prasad MD
[2018-02-20] MEDS ORDERED: Ergocalciferol 50,000 Intl Units Cap PO SCH (17:45)
--- NOTE | 2018-02-20 23:29 | CON ---
DATE: 02/20/2018 HISTORY OF PRESENT ILLNESS: The patient is a 47-year-old [facility] single female with history of depression and anxiety. No history of suicide attempts or psychiatric hospitalization. No current outpatient treatment or psychiatric medication who was hospitalized on the medical floor after she presented with uncontrolled hypertension secondary to inability to pay for her medication leading to noncompliance to medications. The patient was placed on observation by social service consult. Psychiatrist consulted also because of the patient's history of anxiety. I met with the patient at bedside and she is alert and oriented to month, year, location and circumstances. She was quite cooperative and pleasant and grateful for her help on the medical floor thus far. She admits to anxiety and symptoms of depression, which consists of anhedonia, liability, poor sleep, low energy, getting overwhelmed, and irritability. The patient also indicates that she has a history of frequent and uncontrolled worrying, even about everyday things that are routine, and to be anxious and affects her functioning, which is consistent with diagnosis of generalized anxiety disorder. The patient reports that she also gets panic attacks as well. The patient used to be in treatment at [facility]; however, this was between 3 and 5 years ago and has not been in any psychiatric treatment or medications since then. The patient used to take Lexapro and Ativan, recalls that she took Xanax and Paxil in the past and feels that Paxil and Ativan have been beneficial for her. She is not suicidal. She is not homicidal. She is hopeful for the future. She denied having any thoughts of harming her 5-year-old daughter or any member of the family. She wants to improve for herself and for her family. She has been calm, cooperative, with congruent behavior on the medical floor thus far. The patient is also demonstrating fair insight and judgment. PSYCHIATRIC HISTORY: The patient denies any prior psychiatric hospitalizations or suicidal attempts. She used to attend [facility]; however, this was 3 to 5 years ago. The patient reports Lexapro, Paxil, Xanax and Ativan. The patient feels the Paxil and Ativan were most beneficial. Please note that I reviewed the [facility] chart, which shows the patient accidentally overdosed on Ativan in 03/2014 and presented to the ER, apparently, she confused the Ativan for Lexapro and she had consistently denied that this was a suicide attempt and Behavioral Health was not involved at that time. SOCIAL HISTORY: The patient was born in [facility]. She is single and has a 5-year daughter. She lives with her sister and the 5-year-old daughter. She is unemployed. The 5-year-old daughter is currently with her sister at this time. Vital signs and labs were reviewed. RELEVANT PSYCHIATRIC MEDICATIONS: Include Vistaril 25 mg p.o. every 8 hours p.r.n. anxiety. IMPRESSION: Major depressive disorder, moderate generalized anxiety disorder and panic disorder. RECOMMENDATIONS: At this time, I will switch medications for the patient, Paxil 10 mg at bedtime and titrate it to 20 mg at bedtime as well as Ativan 0.25 mg a.m. and at bedtime p.r.n. for anxiety. I have reviewed the therapeutic latency, possible side effects, dosing and indications of Paxil. I have also reviewed the indications, possibility of developing tolerance and dependency on Ativan, risk of respiratory depression when given with other depression such as alcohol, sedatives or opiates and the patient is agreeable to start a trial with both Ativan and Paxil at this time. The patient is not a danger to herself or others; however, might benefit from a psychiatric hospitalization and Psychiatry will continue to follow up with the patient and her next followup by Psychiatry will be Wednesday02/21/[address] Martinez and we will consider this is an option for the patient once she is medically cleared. However, if she is not agreeable to psychiatric admission, it is not required as I mentioned, she is not danger to herself or others. Michelle Crowder MD
[2018-02-21 07:27] LABS: BASO # 0.02 K/mm3 (0.0-2.0); BASO % 0.5 % (0.0-3.0); EOS # 0.1 (0.0-0.7); EOS % 2.9 % (1.5-5.0); GRAN # 2.17 (1.4-6.5); GRAN % 51.9 % (50.0-68.0); HEMOGLOBIN 9.8 g/dL (12.0-16.0); LYMPH # 1.3 (1.2-3.4); LYMPH % 29.9 % (22.0-35.0); MEAN CELL VOLUME 75.7 fl (80.0-105.0); MEAN CORPUSCULAR HEMOGLOBIN 23.6 pg (25.0-35.0); MEAN CORPUSCULAR HGB CONC 31.2 g/dl (31.0-37.0); MEAN PLATELET VOLUME 8.5 fl (7.0-11.0); MONO # 0.6 (0.1-0.6); MONO % 14.8 % (1.0-6.0); RBC 4.15 10^6/uL (3.5-6.1); RED CELL DISTRIBUTION WIDTH 18.6 % (11.5-14.5); WHITE BLOOD COUNT 4.2 10^3/ul (4.5-11.0)
[2018-02-21 08:09] LABS: BLOOD UREA NITROGEN 11 mg/dL (7-21); CALCIUM 8.7 mg/dL (8.4-10.5); GFR NON-AFRICAN AMERICAN > 60
[2018-02-21 08:14] LABS: FREE T4 2.46 ng/dL (0.78-2.19); T4 17.2 ug/dL (5.5-11.0)
[2018-02-21 08:22] VITALS: BP 168/97; RESP 20
[2018-02-21] MEDS: methIMAzole 5 MG TAB PO SCH (10:09)
--- NOTE | 2018-02-21 10:16 | PN ---
DATE: 02/21/2018 SUBJECTIVE: In short, the patient is 47-year-old female from [facility]. The patient was admitted on the medical site for evaluation of headache, high blood pressure. The patient was noncompliant with the medications because the medications are expensive as per the patient. Psych consult was called for evaluation of anxiety. The patient was seen by Dr. Crowder over the weekend and this medical writer is taking over. Previous records reviewed. Medications reviewed. Discussed with the nursing staff. As per Dr. Crowder's notes, the patient has history of anxiety, most likely generalized anxiety disorder and depression. The patient was followed up by [facility] but last time was about five years ago. The patient had good response on Paxil and Ativan, which was resumed. The patient was seen and examined today. The patient presented to be sleepy, easily arousable, somewhat anxious. The patient is consistent with her presentation. The patient reported that at times, she feels depressed; at times, she feels anxious; reported her night was okay but the patient still complained of lightheadedness and dizziness as well as vertigo. The patient adamantly denied thoughts of harming herself or others. Denied intent or plan. The patient denied any psychotic symptoms and does not present to be psychotic. Vital signs reviewed. Blood pressure is better controlled. Temperature is 98.8, pulse is 89, blood pressure 168/97, respirations 26 and oxygen saturation of 95. The patient is on Tylenol, Drisdol, Pepcid, Ativan 0.25 mg twice a day as needed for anxiety. The patient is on methimazole and Paxil 10 mg at the nighttime. Labs reviewed. WBC is 4.2. Chemistry reviewed. T4 is 2.46. TSH is less than 0.02. MENTAL STATUS EXAMINATION: The patient presented to be sleepy but easily arousable, intermittent eye contact. Hygiene was acceptable. Speech was underproductive, low volume flow. Mood described not good. Affect was flat. Thought process concrete. Thought content, the patient denied visual, auditory or tactile hallucinations. Denied paranoid ideation. The patient denied thoughts of harming herself or others. Denied intent or plan. Insight and judgment seems to be fair. Impulses are well controlled. IMPRESSION: As per history, the patient has generalized anxiety disorder. The patient also has major depressive disorder in the past, rule out mood disorder due to general medical condition. PLAN: Paxil was resumed 10 mg at the nighttime, Ativan 0.25 mg twice a day. We will follow up and advise accordingly. The patient might benefit from continued care with psychiatrist as outpatient versus if the patient is willing to be admitted to the psychiatric inpatient unit and get treatment, this medical writer cannot exclude that option. The patient might benefit from admission, but not in any imminent danger to self or others. Thank you very much for letting me participate in care of your patient. Should you have any questions, give me a call back. Wilma Martinez MD
--- NOTE | 2018-02-21 11:36 | CP.PCM.PN ---
Subjective - Date & Time of Evaluation Date of Evaluation: 02/21/18 Time of Evaluation: 11:30 - Subjective Subjective: PGY-1 Progress Note for: Dr. Prasad Pt was seen and examined this morning at bedside. She states that she is feeling better from yesterday but admits to feeling her heart race. She denies feeling lightheadedness, tremors, restlessness, agitation, headache, chest pain , SOB, or diarrhea. She also is currently denying any heat intolerance. Objective - Vital Signs/Intake and Output Vital Signs (last 24 hours): Temp Pulse Resp BP Pulse Ox 98.8 F 89 20 168/97 H 95 02/21/18 08:20 02/21/18 08:20 02/21/18 08:20 02/21/18 08:20 02/21/18 08:20 Intake and Output: 02/21/18 02/21/18 06:59 18:59 Intake Total 780 Balance 780 - Medications Medications: Current Medications Acetaminophen (Tylenol 325mg Tab) 650 mg PO Q6H PRN PRN Reason: Headache Last Admin: 02/20/18 11:09 Dose: 650 mg Ergocalciferol (Drisdol 50,000 Intl Units Cap) 1 cap PO Q7D [facility] Last Admin: 02/20/18 19:10 Dose: 1 cap Famotidine (Pepcid) 40 mg PO HS [facility] Last Admin: 02/20/18 22:46 Dose: 40 mg Lorazepam (Ativan) 0.25 mg PO AMHS PRN; Protocol PRN Reason: Anxiety Last Admin: 02/21/18 05:30 Dose: 0.25 mg Methimazole (Tapazole) 20 mg PO BID [facility] Last Admin: 02/21/18 10:09 Dose: 20 mg Paroxetine HCl (Paxil) 10 mg PO HS [facility] Last Admin: 02/20/18 22:47 Dose: 10 mg - Labs Labs: 02/21/18 07:00 02/21/18 07:00 - Constitutional Appears: Well, Non-toxic, No Acute Distress - Head Exam Head Exam: ATRAUMATIC, NORMAL INSPECTION, NORMOCEPHALIC - Eye Exam Eye Exam: EOMI, Normal appearance, PERRL Pupil Exam: NORMAL ACCOMODATION - ENT Exam ENT Exam: Mucous Membranes Moist - Respiratory Exam Respiratory Exam: Clear to Ausculation Bilateral, NORMAL BREATHING PATTERN. absent: Accessory Muscle Use, Rales, Rhonchi, Wheezes - Cardiovascular Exam Cardiovascular Exam: REGULAR RHYTHM, +S1, +S2. absent: Gallop, Rubs, Murmur - GI/Abdominal Exam GI & Abdominal Exam: Soft, Normal Bowel Sounds. absent: Firm, Guarding, Rigid, Tenderness - Extremities Exam Extremities Exam: Full ROM, Normal Inspection. absent: Pedal Edema - Psychiatric Exam Psychiatric exam: absent: Agitated, Anxious - Skin Skin Exam: Dry, Intact, Normal Color, Warm Assessment and Plan - Assessment and Plan (Free Text) Assessment: Pt is a 47 yo F with pmhx of HTN who we are seeing due to newly diagnosed hyperthyroidism. Her TSH continues to be <.02, while her T4 today was noted to be 17.2, which is an improvement from yesterday (02/21) where TSH was 17.9. - We will continue the current dose of methimazole since pt is found to be responding. - Will continue to monitor progress with serial TSH and T4 measurements - Please ensure that pt f/u with PMD upon d/c for continued management of hyperthyroidism - Will repeat blood work in 1 month upon d/c to follow efficacy of treatment and to allow further titration of meds if needed - Will continue to follow Discussed with Dr. Osmar Pisano PGY1
--- NOTE | 2018-02-21 14:53 | CP.PCM.DIS ---
<Concetta Daley - Last Filed: 02/21/18 17:43> Provider - Provider Date of Admission: 02/20/18 07:34 Attending physician: Jazzy Stone DO Primary care physician: jhoan Consults: endocrinology, psychiatry Time Spent in preparation of Discharge (in minutes): 45 Diagnosis - Discharge Diagnosis (1) Hypertensive emergency Status: Resolved Priority: High (2) Hyperthyroidism Status: Chronic Priority: High (3) Headache Status: Resolved Priority: High (4) Depression Status: Chronic Priority: Medium (5) Anxiety Status: Chronic Priority: Medium Hospital Course - Lab Results Lab Results: Most Recent Lab Values WBC 4.2 10^3/ul (4.5-11.0) L 02/21/18 07:00 RBC 4.15 10^6/uL (3.5-6.1) 02/21/18 07:00 Hgb 9.8 g/dL (12.0-16.0) L 02/21/18 07:00 Hct 31.4 % (36.0-48.0) L 02/21/18 07:00 MCV 75.7 fl (80.0-105.0) L 02/21/18 07:00 MCH 23.6 pg (25.0-35.0) L 02/21/18 07:00 MCHC 31.2 g/dl (31.0-37.0) 02/21/18 07:00 RDW 18.6 % (11.5-14.5) H 02/21/18 07:00 Plt Count 525 10^3/uL (120.0-450.0) H 02/21/18 07:00 MPV 8.5 fl (7.0-11.0) 02/21/18 07:00 Gran % 51.9 % (50.0-68.0) 02/21/18 07:00 Lymph % (Auto) 29.9 % (22.0-35.0) 02/21/18 07:00 Sabine % (Auto) 14.8 % (1.0-6.0) H 02/21/18 07:00 Eos % (Auto) 2.9 % (1.5-5.0) 02/21/18 07:00 Baso % (Auto) 0.5 % (0.0-3.0) 02/21/18 07:00 Gran # 2.17 (1.4-6.5) 02/21/18 07:00 Lymph # (Auto) 1.3 (1.2-3.4) 02/21/18 07:00 Sabine # (Auto) 0.6 (0.1-0.6) 02/21/18 07:00 Eos # (Auto) 0.1 (0.0-0.7) 02/21/18 07:00 Baso # (Auto) 0.02 K/mm3 (0.0-2.0) 02/21/18 07:00 Sodium 139 mmol/L (132-148) 02/21/18 07:00 Potassium 4.0 mmol/L (3.6-5.0) 02/21/18 07:00 Chloride 107 mmol/L (98-107) 02/21/18 07:00 Carbon Dioxide 26 mmol/L (21-33) 02/21/18 07:00 Anion Gap 11 (10-20) 02/21/18 07:00 BUN 11 mg/dL (7-21) 02/21/18 07:00 Creatinine 0.5 mg/dl (0.7-1.2) L 02/21/18 07:00 Est GFR ( Amer) > 60 02/21/18 07:00 Est GFR (Non-Af Amer) > 60 02/21/18 07:00 Random Glucose 86 mg/dL (70-110) 02/21/18 07:00 Calcium 8.7 mg/dL (8.4-10.5) 02/21/18 07:00 Phosphorus 3.4 mg/dL (2.5-4.5) 02/21/18 07:00 Magnesium 2.0 mg/dL (1.7-2.2) 02/21/18 07:00 Iron 20 ug/dL (45-180) L 02/19/18 05:30 TIBC 363 ug/dL (265-497) 02/19/18 05:30 % Saturation 5 % (20-55) L 02/19/18 05:30 Ferritin 8.7 ng/mL 02/19/18 05:30 Total Bilirubin 0.2 mg/dL (0.2-1.3) 02/20/18 07:00 AST 36 U/L (14-36) 02/20/18 07:00 ALT 25 U/L (7-56) 02/20/18 07:00 Alkaline Phosphatase 126 U/L (38-126) D 02/20/18 07:00 Troponin I < 0.01 ng/mL 02/19/18 05:30 Total Protein 6.8 g/dL (5.8-8.3) 02/20/18 07:00 Albumin 3.5 g/dL (3.0-4.8) 02/20/18 07:00 Globulin 3.2 gm/dL 02/20/18 07:00 Albumin/Globulin Ratio 1.1 (1.1-1.8) 02/20/18 07:00 25-OH Vitamin D Total < 12.8 NG/ML (30.0-100.0) L 02/20/18 07:00 Free T4 2.46 ng/dL (0.78-2.19) H 02/21/18 07:00 Thyroxine (T4) 17.2 ug/dL (5.5-11.0) H 02/21/18 07:00 Free T3 pg/mL 8.72 pg/mL (2.77-5.27) H 02/19/18 06:00 TSH 3rd Generation < 0.02 mIU/mL (0.46-4.68) L 02/21/18 07:00 Cortisol AM Sample 5.6 ug/dL (4.46-22.7) 02/20/18 07:00 - Hospital Course Hospital Course: Upon Admission: 47F presented to the ED on 02/19/2018 complaining of headache discomfort and high blood pressure. Patient admitted to hypertension medical noncompliance due to cost of medication. Patient was given Tylenol and Clonidine 0.2 PO stat for blood pressure control in the ED. Head revealed no acute intracranial abnormalities. EKG revealed normal sinus rhythm with prolonged QTC. Troponins were negative. Hospital Course: Patient was admitted under TELE to the Hospitalist team. Endocrinology was consulted. An iron panel was ordered due to patients microcytic anemia. TSH and magnesium levels were ordered as well revealing low and normal values respectively. Thyroid antibody panel was ordered. Patient was started on methimazole 20mg BID. Psychiatry was consulted due to patients history of anxiety and depression. Patient was started on Ativan 0.25 AMHS PRN and Paxil 10mg QHS. Upon Discharge: Psychiatry signed off with recommendations to follow-up outpatient for treatment of anxiety and depression. Endocrinology signed off with recommendations to follow-up outpatient within one week for thyroid hormone level maintenance/treatment. Discharge Exam - Head Exam Head Exam: ATRAUMATIC, NORMAL INSPECTION, NORMOCEPHALIC - Eye Exam Eye Exam: EOMI, Normal appearance, PERRL - ENT Exam ENT Exam: Mucous Membranes Moist, Normal Exam - Neck Exam Neck exam: Full Rom, Normal Inspection - Respiratory Exam Respiratory Exam: Clear to PA & Lateral, NORMAL BREATHING PATTERN, UNREMARKABLE - Cardiovascular Exam Cardiovascular Exam: REGULAR RHYTHM, +S1, +S2 - GI/Abdominal Exam GI & Abdominal Exam: Normal Bowel Sounds, Soft, Unremarkable - Rectal Exam Rectal Exam: Deferred - Extremities Exam Extremities exam: normal inspection, pedal pulses present - Back Exam Back exam: NORMAL INSPECTION - Neurological Exam Neurological exam: Alert, CN II-XII Intact, Normal Gait, Oriented x3 - Psychiatric Exam Psychiatric exam: Anxious, Normal Mood - Skin Skin Exam: Dry, Intact, Normal Color, Warm Discharge Plan - Discharge Medications Prescriptions: LORazepam [Ativan] 0.25 mg PO AMHS PRN #28 tab PRN Reason: Anxiety methIMAzole [Tapazole] 20 mg PO DAILY #14 tab PARoxetine [Paxil] 10 mg PO HS #14 tab - Follow Up Plan Condition: IMPROVED Disposition: HOME/ ROUTINE Instructions: Hyperthyroidism (Overactive Thyroid), High Blood Pressure in Adults Additional Instructions: Please call your insurance company to establish a primary care physician that will be covered. It is important that you follow-up with an appointment in 3-5 days. Please take your thyroid and depression/anxiety medications as prescribed. If symptoms return, please present to the nearest emergency department. Llame a tristan compaa de seguros para establecer un mdico de atencin primaria que estar cubierto. Es importante que estella un seguimiento con james isabelle en 3-5 d as. [place] [facility] para la tiroides y la depresin / ansiedad segn lo recetado. Si los sntomas vuelven, por favor presente al departamento de emergencia ms rosario. Referrals: [facility] [place] <Nena Brown - Last Filed: 02/22/18 15:13> Provider - Provider Date of Admission: 02/19/18 04:46 Attending physician: Jazzy Stone DO Primary care physician: Deyanira Wilkins MD Hospital Course - Lab Results Lab Results: Most Recent Lab Values WBC 4.2 10^3/ul (4.5-11.0) L 02/21/18 07:00 RBC 4.15 10^6/uL (3.5-6.1) 02/21/18 07:00 Hgb 9.8 g/dL (12.0-16.0) L 02/21/18 07:00 Hct 31.4 % (36.0-48.0) L 02/21/18 07:00 MCV 75.7 fl (80.0-105.0) L 02/21/18 07:00 MCH 23.6 pg (25.0-35.0) L 02/21/18 07:00 MCHC 31.2 g/dl (31.0-37.0) 02/21/18 07:00 RDW 18.6 % (11.5-14.5) H 02/21/18 07:00 Plt Count 525 10^3/uL (120.0-450.0) H 02/21/18 07:00 MPV 8.5 fl (7.0-11.0) 02/21/18 07:00 Gran % 51.9 % (50.0-68.0) 02/21/18 07:00 Lymph % (Auto) 29.9 % (22.0-35.0) 02/21/18 07:00 Sabine % (Auto) 14.8 % (1.0-6.0) H 02/21/18 07:00 Eos % (Auto) 2.9 % (1.5-5.0) 02/21/18 07:00 Baso % (Auto) 0.5 % (0.0-3.0) 02/21/18 07:00 Gran # 2.17 (1.4-6.5) 02/21/18 07:00 Lymph # (Auto) 1.3 (1.2-3.4) 02/21/18 07:00 Sabine # (Auto) 0.6 (0.1-0.6) 02/21/18 07:00 Eos # (Auto) 0.1 (0.0-0.7) 02/21/18 07:00 Baso # (Auto) 0.02 K/mm3 (0.0-2.0) 02/21/18 07:00 Sodium 139 mmol/L (132-148) 02/21/18 07:00 Potassium 4.0 mmol/L (3.6-5.0) 02/21/18 07:00 Chloride 107 mmol/L (98-107) 02/21/18 07:00 Carbon Dioxide 26 mmol/L (21-33) 02/21/18 07:00 Anion Gap 11 (10-20) 02/21/18 07:00 BUN 11 mg/dL (7-21) 02/21/18 07:00 Creatinine 0.5 mg/dl (0.7-1.2) L 02/21/18 07:00 Est GFR ( Amer) > 60 02/21/18 07:00 Est GFR (Non-Af Amer) > 60 02/21/18 07:00 Random Glucose 86 mg/dL (70-110) 02/21/18 07:00 Calcium 8.7 mg/dL (8.4-10.5) 02/21/18 07:00 Phosphorus 3.4 mg/dL (2.5-4.5) 02/21/18 07:00 Magnesium 2.0 mg/dL (1.7-2.2) 02/21/18 07:00 Iron 20 ug/dL (45-180) L 02/19/18 05:30 TIBC 363 ug/dL (265-497) 02/19/18 05:30 % Saturation 5 % (20-55) L 02/19/18 05:30 Ferritin 8.7 ng/mL 02/19/18 05:30 Total Bilirubin 0.2 mg/dL (0.2-1.3) 02/20/18 07:00 AST 36 U/L (14-36) 02/20/18 07:00 ALT 25 U/L (7-56) 02/20/18 07:00 Alkaline Phosphatase 126 U/L (38-126) D 02/20/18 07:00 Troponin I < 0.01 ng/mL 02/19/18 05:30 Total Protein 6.8 g/dL (5.8-8.3) 02/20/18 07:00 Albumin 3.5 g/dL (3.0-4.8) 02/20/18 07:00 Globulin 3.2 gm/dL 02/20/18 07:00 Albumin/Globulin Ratio 1.1 (1.1-1.8) 02/20/18 07:00 25-OH Vitamin D Total < 12.8 NG/ML (30.0-100.0) L 02/20/18 07:00 Free T4 2.46 ng/dL (0.78-2.19) H 02/21/18 07:00 Thyroxine (T4) 17.2 ug/dL (5.5-11.0) H 02/21/18 07:00 Free T3 pg/mL 8.72 pg/mL (2.77-5.27) H 02/19/18 06:00 Thyroglobulin, Quant 0.5 ng/mL (2.8-40.9) L 02/20/18 07:00 TSH 3rd Generation < 0.02 mIU/mL (0.46-4.68) L 02/21/18 07:00 Cortisol AM Sample 5.6 ug/dL (4.46-22.7) 02/20/18 07:00 Thyroperoxidase Ab 224 IU/mL (<9) H 02/20/18 07:00 Thyroglobulin Antibody 585 IU/mL (< OR = 1) H 02/20/18 07:00 Attending/Attestation - Attestation I have personally seen and examined this patient.: Yes I have fully participated in the care of the patient.: Yes I have reviewed all pertinent clinical information, including history, physical exam and plan: Yes Notes (Text): 02/22/18 15:10 Attending note; Patient seen and examined with resident. Patient is a 47 year old female with past medical history significant for hypertension that presented to the emergency room with headache and high blood pressure. 1. Hypertensive urgency. Resolved. Patient is normotensive. 2. Headache. Resolved. CT head is negative. 3. Depression and anxiety. Psychiatry consulted, follow up recommendations. Started on Vistaril prn for now. 4. Hyperthyroidism. Started on methimazole. endocrinology evaluation appreciated. patient will be discharged home today. follow-up with PMD DR. wilkins. Patient was also [place] [facility] [place] . Case discussed in detail with patient regarding current diagnosis and treatment plan.
--- NOTE | 2018-02-21 16:22 | PN ---
DATE: 02/21/2018 ENDO FOLLOWUP NOTE LOCATION: In room 574. SUBJECTIVE: This is a 47-year-old female, presenting here with accelerated hypertension and hyperadrenergic manifestations and was evaluated also to have overt hyperthyroidism and started on medical therapy accordingly. She has tolerated the medications as given on the inpatient and the latest thyroid studies showed a T4 or thyroxine of 17.2 mcg/dL with a free T4 of 2.46 and a TSH of less than 0.02. Her chemistry showed a BUN of 11, sodium 139, potassium 4, chloride 107, CO2 of 26, glucose 86 and creatinine 0.5. At this time, we will recommend for eventual discharge today, a dose modification of her Tapazole to simplify her outpatient thyroid management. I would recommend Tapazole given as 10 mg 2 tablets p.o. once daily in the morning as ordered. She has been advised to follow with the medical doctor and also with our local clinic downstairs to have a closer metabolic and clinical followup as she needs repeat thyroid studies in at least a month or 4-6 weeks to adjust her dose regimen accordingly. We will obtain serial chemistries and supplement accordingly as needed. We will follow. Imani Prasad MD
[2018-02-21 16:25] VITALS: PULSE 88; TEMP 98.4; O2SAT 10
[2018-02-21 16:45] LABS: THYROGLOBULIN 0.5 ng/mL (2.8-40.9)
== END 2018-02-21 16:30 | disposition home or self-care (01) ==
LOC: ED 22:36 → ERH 02-19 04:46 → 5RSO 02-19 06:43 → INTOOBSV 02-20 07:34 → OBSVTOIN 02-20 07:34
PROVIDERS: ADMIT Internal Medicine; ATTEND Hospitalist
DX: I16.1 Hypertensive emergency (principal); I10 Essential (primary) hypertension; Z91.19 Patient's noncompliance with other medical treatment and regimen; Z91.14 Patient's other noncompliance with medication regimen; D50.9 Iron deficiency anemia, unspecified; F41.1 Generalized anxiety disorder; E05.00 Thyrotoxicosis with diffuse goiter without thyrotoxic crisis or storm; E55.9 Vitamin D deficiency, unspecified; F32.1 Major depressive disorder, single episode, moderate; F41.0 Panic disorder [episodic paroxysmal anxiety]
CPT/HCPCS: 36415; 70450; 80048; 80053; 82306; 82533; 82728; 83540; 83550; 83735; 84100; 84432; 84439; 84443; 84445; 84481; 84484; 85025; 85027; 86376; 86800; 93005; 99284; G0378; Q0177

== ENCOUNTER 2018-05-05 15:24 | Emergency (ER) | payer MEDICAID, OTHER ==
[2018-05-05 15:38] VITALS: BMI 20.9
[2018-05-05 16:05] VITALS: BP 171/106; PULSE 88; RESP 18; TEMP 98.4; O2SAT 98
--- NOTE | 2018-05-05 17:09 | ED PDOC ---
Arrival/HPI - General Chief Complaint: ENT Problem Time Seen by Provider: 05/05/18 15:26 Historian: Patient - History of Present Illness Narrative History of Present Illness (Text): 05/05/18 17:09 47-year-old female presents today with a three-week history of nasal congestion. No chest pain or shortness of breath. No fevers or chills. No dizziness or weakness. Patient denies cough. No vomiting or diarrhea. No sore throat. No ear pain. No other complaints Past Medical History - Provider Review Nursing Documentation Reviewed: Yes - Travel History Have you recently traveled outside [place] w/in the past 3 mons?: No - Infectious Disease Hx of Infectious Diseases: None - Tetanus Immunization Tetanus Immunization: Unknown - Past Medical History Past Medical History: No Previous - Cardiac Hx Hypertension: Yes - Pulmonary Hx Respiratory Disorders: No - Neurological Hx Neurological Disorder: No - HEENT Hx HEENT Disorder: No - Renal Hx Renal Disorder: No - Endocrine/Metabolic Hx Endocrine Disorders: Yes Hx Hyperthyroidism: Yes - Hematological/Oncological Hx Blood Disorders: No - Integumentary Hx Dermatological Disorder: No - Musculoskeletal/Rheumatological Hx Falls: No - Gastrointestinal Hx Gastrointestinal Disorders: No - Genitourinary/Gynecological Hx Genitourinary Disorders: No - Psychiatric Hx Psychophysiologic Disorder: Yes Hx Anxiety: Yes Hx Depression: Yes Hx Substance Use: No - Past Surgical History Past Surgical History: No Previous - Anesthesia Hx Anesthesia: Yes Hx Anesthesia Reactions: No Hx Malignant Hyperthermia: No - Suicidal Assessment Feels Threatened In Home Enviroment: Yes Family/Social History - Physician Review Nursing Documentation Reviewed: Yes Family/Social History: Unknown Family HX Smoking Status: Never Smoked Hx Alcohol Use: No Hx Substance Use: No Hx Substance Use Treatment: No Allergies/Home Meds Allergies/Adverse Reactions: Allergies No Known Allergies Allergy (Verified 01/15/16 01:50) Review of Systems - Review of Systems Constitutional: absent: Fatigue, Fevers Eyes: absent: Vision Changes, Photophobia ENT: Sinus Congestion. absent: Sore Throat Respiratory: absent: SOB, Cough Cardiovascular: absent: Chest Pain, Palpitations Gastrointestinal: absent: Abdominal Pain, Nausea, Vomiting Genitourinary Female: absent: Dysuria, Frequency, Hematuria Musculoskeletal: absent: Arthralgias, Back Pain, Neck Pain Skin: absent: Rash, Pruritis Neurological: absent: Headache, Dizziness Psychiatric: absent: Anxiety, Depression Physical Exam Vital Signs Reviewed: Yes Vital Signs Temp Pulse Resp BP Pulse Ox 05/05/18 15:26 98.4 F 88 18 171/106 H 98 Temperature: Afebrile Blood Pressure: Hypertensive Pulse: Regular Respiratory Rate: Normal Appearance: Positive for: Well-Appearing, Non-Toxic, Comfortable Pain Distress: None Mental Status: Positive for: Alert and Oriented X 3 - Systems Exam Head: Present: Atraumatic Pupils: Present: PERRL Extroacular Muscles: Present: EOMI Conjunctiva: Present: Normal Ears: Present: Normal, NORMAL TM Mouth: Present: Moist Mucous Membranes Pharnyx: Present: Normal. No: ERYTHEMA, EXUDATE, TONSILS ENLARGED Nose (External): Present: Atraumatic Nose (Internal): Present: Clear Mucous. No: Septal Hematoma, Epistaxis Neck: Present: Normal Range of Motion, Trachea Midline. No: Lymphadenopathy Respiratory/Chest: Present: Clear to Auscultation, Good Air Exchange. No: Respiratory Distress, Accessory Muscle Use Cardiovascular: Present: Regular Rate and Rhythm, Normal S1, S2. No: Murmurs Neurological: Present: GCS=15 Skin: Present: Warm, Dry, Normal Color. No: Rashes Psychiatric: Present: Alert, Oriented x 3 Medical Decision Making ED Course and Treatment: 05/05/18 17:10 47yr old female presents with 3 week hx of nasal congestion. pt with htn. non compliant with medications; pt was advised to f/u with medical clinic. pt was advised of elevated bp and need to take her bp medications. advised f/u with PMD/clinic. advised f/u with ENT. Advised immediate return if symptoms worsen persist or if new concerning symptoms develop Impression: Nasal congestion increase fluids follow up with the PMD within the next 2 days flonase; 2 sprays each nostril once daily. claritin; once daily Follow up with the ENT specialist within the next 2 days return if symptoms worsen,persist or if new symptoms develop. Disposition/Present on Arrival - Present on Arrival Any Indicators Present on Arrival: No History of DVT/PE: No History of Uncontrolled Diabetes: No Urinary Catheter: No History of Decub. Ulcer: No History Surgical Site Infection Following: None - Disposition Have Diagnosis and Disposition been Completed?: Yes Diagnosis: Nasal congestion Disposition: HOME/ ROUTINE Disposition Time: 16:32 Patient Plan: Discharge Condition: GOOD Additional Instructions: increase fluids follow up with the PMD within the next 2 days flonase; 2 sprays each nostril once daily. claritin; once daily Follow up with the ENT specialist within the next 2 days return if symptoms worsen,persist or if new symptoms develop. Prescriptions: Fluticasone Nasal [Flonase] 2 spr NS DAILY #1 spr Loratadine [Claritin] 10 mg PO DAILY #30 tab Referrals: Helio Holcomb DO [Staff Provider] - Follow up with primary Jerri Ibrahim MD [Medical Doctor] - Follow up with primary [facility] [Outside] - Follow up with primary
== END 2018-05-05 17:23 | disposition home or self-care (01) ==
LOC: ED 15:24
DX: R09.81 Nasal congestion (principal); I10 Essential (primary) hypertension; E05.90 Thyrotoxicosis, unspecified without thyrotoxic crisis or storm

== ENCOUNTER 2018-06-30 15:47 | Emergency (ER) | payer MEDICAID, OTHER ==
[2018-06-30 15:53] VITALS: TEMP 98.5; BMI 19.3
--- NOTE | 2018-06-30 16:45 | ED PDOC ---
Arrival/HPI - General Chief Complaint: Abnormal Labs Time Seen by Provider: 06/30/18 16:08 Historian: Patient - History of Present Illness Narrative History of Present Illness (Text): 06/30/18 16:43 47yo female with pmhx of hypertension referred to ED by for h/h of 9.8. Patient states she went to today secondary to SOB since last night. Denies previous history. States her BP is also elevated. Admits to compliance with her antihypertensive. Denies chest pain, fever, chills, orthopnea, recent travel/surgery, abdominal pain, dizziness, LE edema, calf pain, any other complaint. Past Medical History - Provider Review Nursing Documentation Reviewed: Yes - Infectious Disease Hx of Infectious Diseases: None - Tetanus Immunization Tetanus Immunization: Unknown - Reproductive Menopause: No - Past Medical History Past Medical History: No Previous - Cardiac Hx Hypertension: Yes - Pulmonary Hx Respiratory Disorders: No - Neurological Hx Neurological Disorder: No - HEENT Hx HEENT Disorder: No - Renal Hx Renal Disorder: No - Endocrine/Metabolic Hx Endocrine Disorders: Yes Hx Hyperthyroidism: Yes - Hematological/Oncological Hx Blood Disorders: No - Integumentary Hx Dermatological Disorder: No - Musculoskeletal/Rheumatological Hx Falls: No - Gastrointestinal Hx Gastrointestinal Disorders: No - Genitourinary/Gynecological Hx Genitourinary Disorders: No - Psychiatric Hx Psychophysiologic Disorder: Yes Hx Anxiety: Yes Hx Depression: Yes Hx Substance Use: No - Past Surgical History Past Surgical History: No Previous - Anesthesia Hx Anesthesia: Yes Hx Anesthesia Reactions: No Hx Malignant Hyperthermia: No - Suicidal Assessment Feels Threatened In Home Enviroment: Yes Family/Social History - Physician Review Nursing Documentation Reviewed: Yes Family/Social History: Unknown Family HX Smoking Status: Never Smoked Hx Alcohol Use: No Hx Substance Use: No Hx Substance Use Treatment: No Allergies/Home Meds Allergies/Adverse Reactions: Allergies No Known Allergies Allergy (Verified 01/15/16 01:50) Review of Systems - Physician Review All systems were reviewed & negative as marked: Yes - Review of Systems Constitutional: Normal Eyes: Normal ENT: Normal Respiratory: SOB Cardiovascular: Normal Gastrointestinal: Normal Genitourinary Female: Normal Musculoskeletal: Normal Skin: Normal Neurological: Normal Endocrine: Normal Hemo/Lymphatic: Normal Psychiatric: Normal Physical Exam Vital Signs Reviewed: Yes Vital Signs Temp Pulse Resp BP Pulse Ox 06/30/18 15:52 98.5 F 125 H 20 197/108 H 100 Temperature: Afebrile Blood Pressure: Hypertensive Pulse: Tachycardic Appearance: Positive for: Well-Appearing, Non-Toxic, Comfortable Pain Distress: None Mental Status: Positive for: Alert and Oriented X 3 - Systems Exam Head: Present: Atraumatic, Normocephalic Pupils: Present: PERRL Extroacular Muscles: Present: EOMI Conjunctiva: Present: Normal Mouth: Present: Moist Mucous Membranes Neck: Present: Normal Range of Motion Respiratory/Chest: Present: Clear to Auscultation, Good Air Exchange. No: Res piratory Distress, Accessory Muscle Use, Wheezes, Decreased Breath Sounds, Rales, Retracting, Rhonchi, Tachypneic Cardiovascular: Present: Regular Rate and Rhythm, Normal S1, S2. No: Murmurs Abdomen: No: Tenderness, Distention, Peritoneal Signs Back: Present: Normal Inspection Upper Extremity: Present: Normal Inspection. No: Cyanosis, Edema Lower Extremity: Present: Normal Inspection. No: Edema Neurological: Present: GCS=15, CN II-XII Intact, Speech Normal Skin: Present: Warm, Dry, Normal Color. No: Rashes Psychiatric: Present: Alert, Oriented x 3, Normal Insight, Normal Concentration Medical Decision Making ED Course and Treatment: EXAM: CTA Chest with Intravenous Contrast for Pulmonary Embolism Electronically signed on Jun 30, 2018 9:10:05 PM EST by: Brandon Vu M.D., IMPRESSION: 1. No evidence for acute pulmonary embolism. 2. There are cholecystectomy clips in the right upper quadrant. 3. No evidence for consolidation, pleural effusion or pneumothorax. 07/01/18 00:46 PT presented to ED for stated history. She was not in any distress. Her labs was unremarkable with exception of mild elevated d dimer. Chest xray NAD While in ED pt started to report anxiety and asking for anxiolytics. On Further questioning she report that the symptoms she was having is typical of her anxiety symptoms. Chest CTA as noted above Labs was unremarkable, H/H was >10 Rapid flu was negative Her BP improved in ED with Tylenol and anxiolytics She states she feels much better s/p the anxiolytic was given. She was DC home. All result was DW the pt. she requested for anxiolytics and was advised to f/u with her PMD for rx. - RAD Interpretation Radiology Orders: 06/30/18 16:29 CHEST PORTABLE [RAD] Stat Disposition/Present on Arrival - Present on Arrival Any Indicators Present on Arrival: No History of DVT/PE: No History of Uncontrolled Diabetes: No Urinary Catheter: No History of Decub. Ulcer: No History Surgical Site Infection Following: None - Disposition Have Diagnosis and Disposition been Completed?: Yes Diagnosis: Anxiety, Headache, HTN (hypertension) Disposition: HOME/ ROUTINE Disposition Time: 23:05 Patient Plan: Discharge Condition: STABLE Discharge Instructions (ExitCare): Anxiety, Adult (DC) Additional Instructions: Follow up with your Doctor Return to Ed for any new symptoms Referrals: FAMILY PROVIDER,NO [Primary Care Provider] - Follow up with primary Jerri Ibrahim MD [Medical Doctor] - Follow up with primary Forms: [employer] [facility] (Korean)
[2018-06-30 17:51] LABS: URINE BILIRUBIN NEGATIVE (NEGATIVE); URINE BLOOD NEGATIVE (NEGATIVE); URINE GLUCOSE (UA) NEGATIVE (NEGATIVE); URINE LEUKOCYTE ESTERASE NEGATIVE Leu/uL (NEGATIVE); URINE PROTEIN TRACE mg/dL (<30 mg/dL); URINE UROBILINOGEN 0.2 E.U./dL (<1 E.U./dL)
[2018-06-30 18:01] LABS: URINE APPEARANCE CLEAR (CLEAR); URINE COLOR YELLOW (YELLOW)
--- NOTE | 2018-06-30 18:04 | RAD ---
Date of service: 06/30/2018 HISTORY: SOB COMPARISON: Chest radiograph dated 07/08/2017. FINDINGS: LUNGS: No active pulmonary disease. PLEURA: No significant pleural effusion identified, no pneumothorax apparent. CARDIOVASCULAR: No aortic atherosclerotic calcifications. Cardiomediastinal silhouette within normal limits OSSEOUS STRUCTURES: Unchanged. VISUALIZED UPPER ABDOMEN: Right upper quadrant surgical clips. OTHER FINDINGS: None. IMPRESSION: No active disease.
[2018-06-30 18:07] LABS: URINE BACTERIA TRACE /hpf
[2018-06-30 18:25] VITALS: RESP 18; O2SAT 98
[2018-06-30 18:33] LABS: BASO # 0.03 K/mm3 (0.0-2.0); BASO % 0.5 % (0.0-3.0); EOS % 0.7 % (1.5-5.0); GRAN # 3.06 (1.4-6.5); GRAN % 50.3 % (50.0-68.0); HEMOGLOBIN 10.2 g/dL (12.0-16.0); LYMPH # 2.4 (1.2-3.4); LYMPH % 38.8 % (22.0-35.0); MEAN CELL VOLUME 74.5 fl (80.0-105.0); MEAN CORPUSCULAR HEMOGLOBIN 23.2 pg (25.0-35.0); MEAN CORPUSCULAR HGB CONC 31.1 g/dl (31.0-37.0); MEAN PLATELET VOLUME 8.6 fl (7.0-11.0); MONO # 0.6 (0.1-0.6); MONO % 9.7 % (1.0-6.0); RBC 4.4 10^6/uL (3.5-6.1); RED CELL DISTRIBUTION WIDTH 18.5 % (11.5-14.5); WHITE BLOOD COUNT 6.1 10^3/uL (4.5-11.0)
[2018-06-30 18:38] LABS: INR 1.13; PARTIAL THROMBOPLASTIN TIME 30.3 Seconds (26.9-38.3); PROTHROMBIN TIME 12.5 SECONDS (9.4-12.5)
[2018-06-30 18:48] LABS: ALB/GLOB RATIO 1.2 (1.1-1.8); ALBUMIN 4.5 g/dL (3.0-4.8); ALT/SGPT 22 U/L (7-56); AST/SGOT 34 U/L (14-36); BLOOD UREA NITROGEN 7 mg/dL (7-21); CALCIUM 9.3 mg/dL (8.4-10.5); GFR NON-AFRICAN AMERICAN > 60
[2018-06-30 18:58] LABS: VENOUS BLOOD GAS BASE EXCESS -1.3 mmol/L (0.0-2.0); VENOUS BLOOD GAS PO2 31 mm/Hg (30-55); VENOUS BLOOD PH 7.38 (7.32-7.43)
[2018-06-30 19:00] LABS: B-TYPE NATRIURETIC PEPTIDE 76.9 pg/mL (0-450); TROPONIN I < 0.01 ng/mL
--- NOTE | 2018-07-01 00:29 | CARD ---
APPROVED REPORT Date of service: 06/30/2018 EKG Measurement Heart [id number] <Conclusion> Sinus tachycardia NDSTT abnormalities Otherwise normal ECG
[2018-07-01 00:50] VITALS: BP 135/74; PULSE 88
--- NOTE | 2018-07-01 14:33 | CT ---
Date of service: 06/30/2018 PROCEDURE: CT Chest with contrast (Pulmonary Angiogram) HISTORY: SOB COMPARISON: None available. TECHNIQUE: Axial computed tomography images were obtained of the chest in the pulmonary arterial phase of enhancement. Coronal and sagittal reformatted images were created and reviewed. Intravenous contrast dose: 150 cc of Omni 350 Radiation dose: Total exam DLP = 275.99 mGy-cm. This CT exam was performed using one or more of the following dose reduction techniques: Automated exposure control, adjustment of the mA and/or kV according to patient size, and/or use of iterative reconstruction technique. FINDINGS: PULMONARY ARTERIES: Unremarkable. No pulmonary embolism. AORTA: No acute findings. No thoracic aortic aneurysm. No aortic atherosclerotic calcification or mural plaque present. LUNGS: Unremarkable. No nodule, mass or pulmonary consolidation. PLEURAL SPACES: Unremarkable. No effusion or pneumothorax. HEART: Unremarkable. No cardiomegaly. No significant pericardial effusion. LYMPH NODES: No lymphadenopathy. BONES, CHEST WALL: Unremarkable. No fracture or destructive lesion OTHER FINDINGS: Gallbladder removed The report concurs with the preliminary [facility] report IMPRESSION: Unremarkable CT pulmonary angiogram. No pulmonary embolus.
== END 2018-06-30 23:30 | disposition home or self-care (01) ==
LOC: ED 15:47
DX: I10 Essential (primary) hypertension (principal); R51 Headache; F41.9 Anxiety disorder, unspecified; E05.90 Thyrotoxicosis, unspecified without thyrotoxic crisis or storm
CPT/HCPCS: 71045; 71275; 80053; 81001; 81025; 82550; 82803; 83615; 83735; 83880; 84484; 85025; 85378; 85610; 85730; 87804; 93005; 96374; 99284; J2060; Q9967

== ENCOUNTER 2018-07-04 15:21 | Inpatient (IN) | payer MEDICAID, OTHER ==
[2018-07-04 15:21] VITALS: BMI 19.3
--- NOTE | 2018-07-04 15:49 | ED PDOC ---
Arrival/HPI - General Time Seen by Provider: 07/04/18 15:27 Historian: Patient - History of Present Illness Narrative History of Present Illness (Text): 07/04/18 15:46 47yo female with pmhx of hypertension, hyperthyroid, and Anxiety [facility] with complaint of anxiety since this afternoon. Patient was seen here 3days ago for same complaint. Notes that this is her typical anxiety symptom. States she does not have anxiolytic at home. Denies SI/HI, chest pain, any other complaint. Past Medical History - Provider Review Nursing Documentation Reviewed: Yes - Infectious Disease Hx of Infectious Diseases: None - Tetanus Immunization Tetanus Immunization: Unknown - Past Medical History Past Medical History: No Previous - Cardiac Hx Hypertension: Yes - Pulmonary Hx Respiratory Disorders: No - Neurological Hx Neurological Disorder: No - HEENT Hx HEENT Disorder: No - Renal Hx Renal Disorder: No - Endocrine/Metabolic Hx Endocrine Disorders: Yes Hx Hyperthyroidism: Yes - Hematological/Oncological Hx Blood Disorders: No - Integumentary Hx Dermatological Disorder: No - Musculoskeletal/Rheumatological Hx Falls: No - Gastrointestinal Hx Gastrointestinal Disorders: No - Genitourinary/Gynecological Hx Genitourinary Disorders: No - Psychiatric Hx Psychophysiologic Disorder: Yes Hx Anxiety: Yes Hx Depression: Yes Hx Substance Use: No - Past Surgical History Past Surgical History: No Previous - Anesthesia Hx Anesthesia: Yes Hx Anesthesia Reactions: No Hx Malignant Hyperthermia: No - Suicidal Assessment Feels Threatened In Home Enviroment: Yes Family/Social History - Physician Review Nursing Documentation Reviewed: Yes Family/Social History: Unknown Family HX Smoking Status: Never Smoked Hx Alcohol Use: No Hx Substance Use: No Hx Substance Use Treatment: No Allergies/Home Meds Allergies/Adverse Reactions: Allergies No Known Allergies Allergy (Verified 01/15/16 01:50) Home Medications: Home Meds Medication Instructions Recorded Confirmed RX: LORazepam [Ativan] 0.5 mg PO [facility] PRN 07/04/18 07/04/18 Review of Systems - Physician Review All systems were reviewed & negative as marked: Yes - Review of Systems Constitutional: Normal Eyes: Normal ENT: Normal Respiratory: Normal Cardiovascular: Normal Gastrointestinal: Normal Genitourinary Female: Normal Musculoskeletal: Normal Skin: Normal Neurological: Normal Endocrine: Normal Hemo/Lymphatic: Normal Psychiatric: Anxiety Physical Exam Vital Signs Reviewed: Yes Temperature: Afebrile Blood Pressure: Normal Pulse: Regular Respiratory Rate: Normal Appearance: Positive for: Well-Appearing, Non-Toxic, Comfortable, Other (Appear anxious) Pain Distress: None Mental Status: Positive for: Alert and Oriented X 3 - Systems Exam Head: Present: Atraumatic, Normocephalic Pupils: Present: PERRL Extroacular Muscles: Present: EOMI Conjunctiva: Present: Normal Mouth: Present: Moist Mucous Membranes Neck: Present: Normal Range of Motion Respiratory/Chest: Present: Clear to Auscultation, Good Air Exchange. No: Respiratory Distress, Accessory Muscle Use Cardiovascular: Present: Regular Rate and Rhythm, Normal S1, S2. No: Murmurs Abdomen: No: Tenderness, Distention, Peritoneal Signs Back: Present: Normal Inspection Upper Extremity: Present: Normal Inspection. No: Cyanosis, Edema Lower Extremity: Present: Normal Inspection. No: Edema Neurological: Present: GCS=15, CN II-XII Intact, Speech Normal Skin: Present: Warm, Dry, Normal Color. No: Rashes Psychiatric: Present: Alert, Oriented x 3, Normal Insight, Normal Concentration, Anxious Medical Decision Making ED Course and Treatment: 07/05/18 00:39 PT present to ED for stated history. she appeared anxious on arrival. Plan was lab and psych evaluation. Labs Chest xray EKG Ativan Labs was reviewed and worsening thrombocytosis was noted She have UTI and was treated with abx She was admitted for the worsening thrombocytosis. Case was DW Dr. Davidson and he accepted pt for admission. Result and plan was DW the pt and she agreed. Disposition/Present on Arrival - Present on Arrival Any Indicators Present on Arrival: No History of DVT/PE: No History of Uncontrolled Diabetes: No Urinary Catheter: No History Surgical Site Infection Following: None - Disposition Have Diagnosis and Disposition been Completed?: Yes Diagnosis: Thrombocytosis, UTI (urinary tract infection) Disposition: HOSPITALIZED Disposition Time: 16:50 Patient Plan: Admission Patient Problems: Current Active Problems Problem Status Onset Thrombocytosis Acute Condition: FAIR
[2018-07-04 16:14] LABS: BASO # 0.04 K/mm3 (0.0-2.0); BASO % 0.6 % (0.0-3.0); EOS % 0.6 % (1.5-5.0); HEMOGLOBIN 10.5 g/dL (12.0-16.0); LYMPH % 29.9 % (22.0-35.0); MEAN CELL VOLUME 75.4 fl (80.0-105.0); MEAN CORPUSCULAR HEMOGLOBIN 22.9 pg (25.0-35.0); MEAN CORPUSCULAR HGB CONC 30.3 g/dl (31.0-37.0); MEAN PLATELET VOLUME 8.7 fl (7.0-11.0); MONO # 0.9 (0.1-0.6); MONO % 13.4 % (1.0-6.0); RBC 4.59 10^6/uL (3.5-6.1); RED CELL DISTRIBUTION WIDTH 18.2 % (11.5-14.5); WHITE BLOOD COUNT 6.6 10^3/uL (4.5-11.0)
[2018-07-04 16:22] LABS: ACETAMINOPHEN < 10.0 ug/ml (10.0-20.0); SALICYLATE 4 mg/dL (2.0-20.0)
[2018-07-04 16:53] LABS: ALB/GLOB RATIO 1.2 (1.1-1.8); ALBUMIN 4.6 g/dL (3.0-4.8); ALT/SGPT 18 U/L (7-56); AST/SGOT 29 U/L (14-36); BLOOD UREA NITROGEN 10 mg/dL (7-21); CALCIUM 9.5 mg/dL (8.4-10.5); GFR NON-AFRICAN AMERICAN > 60
[2018-07-04] MEDS ORDERED: Potassium Chloride 20 mEq ER Tab PO STA (17:45)
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
[2018-07-04 18:33] LABS: TOTAL IRON BINDING CAPACITY 454 ug/dL (265-497)
[2018-07-04 18:34] LABS: % IRON SATURATION 2 % (20-55)
[2018-07-04 18:35] LABS: IRON 10 ug/dL (45-180)
[2018-07-04 18:35] LABS: PH,URINE 6.5 (4.7-8.0); URINE BILIRUBIN NEGATIVE (NEGATIVE); URINE BLOOD LARGE (NEGATIVE); URINE GLUCOSE (UA) NEGATIVE (NEGATIVE); URINE LEUKOCYTE ESTERASE LARGE Leu/uL (NEGATIVE); URINE PROTEIN 100 mg/dL (<30 mg/dL); URINE UROBILINOGEN 0.2 E.U./dL (<1 E.U./dL)
[2018-07-04 18:38] LABS: URINE APPEARANCE CLOUDY (CLEAR); URINE COLOR RED (YELLOW)
[2018-07-04 18:40] LABS: FREE T4 1.37 ng/dL (0.78-2.19)
[2018-07-04] MEDS ORDERED: cefTRIAXone 1 gm 1 GM/100 ML BAG IVPB STA (19:01)
[2018-07-04 19:12] LABS: URINE EPITHELIAL CELLS MANY /hpf (0-5); URINE RBC TNTC /hpf (0-2)
[2018-07-04 20:02] LABS: FREE T4 1.43 ng/dL (0.78-2.19)
[2018-07-04 20:17] LABS: BARBITURATES, UR NEGATIVE (NEGATIVE); BENZODIAZEPINES, UR NEGATIVE (NEGATIVE); OPIATES, UR NEGATIVE (NEGATIVE); PHENCYCLIDINE, UR NEGATIVE (NEGATIVE)
[2018-07-05] MEDS ORDERED: Influenza Vaccine 60 mcg/0.5 mL SYR (4YR UP) IM ONE (01:27)
[2018-07-05] MEDS ORDERED: Pneumococcal 23-Valent Vaccine IM ONE (01:27)
[2018-07-05 06:30] LABS: BASO # 0.04 K/mm3 (0.0-2.0); BASO % 0.7 % (0.0-3.0); EOS # 0.1 (0.0-0.7); EOS % 1.5 % (1.5-5.0); HEMOGLOBIN 10.2 g/dL (12.0-16.0); LYMPH # 2.6 (1.2-3.4); LYMPH % 42.7 % (22.0-35.0); MEAN CELL VOLUME 75.4 fl (80.0-105.0); MEAN CORPUSCULAR HEMOGLOBIN 22.6 pg (25.0-35.0); MEAN PLATELET VOLUME 8.5 fl (7.0-11.0); MONO # 0.6 (0.1-0.6); RBC 4.51 10^6/uL (3.5-6.1); RED CELL DISTRIBUTION WIDTH 18.4 % (11.5-14.5); WHITE BLOOD COUNT 6.1 10^3/uL (4.5-11.0)
[2018-07-05 07:21] LABS: ALB/GLOB RATIO 1.1 (1.1-1.8); ALBUMIN 4.4 g/dL (3.0-4.8); ALT/SGPT 23 U/L (7-56); AST/SGOT 37 U/L (14-36); BLOOD UREA NITROGEN 12 mg/dL (7-21); CALCIUM 9.2 mg/dL (8.4-10.5); GFR NON-AFRICAN AMERICAN > 60
[2018-07-05] MEDS ORDERED: Potassium Chloride 20 mEq ER Tab PO STA (07:32)
--- NOTE | 2018-07-05 11:12 | CARD ---
APPROVED REPORT Date of service: 07/04/2018 EKG Measurement Heart [id number] <Conclusion> Normal sinus rhythm Normal ECG
[2018-07-05 12:35] LABS: TRANSFERRIN 363.11 mg/dL (206-381)
[2018-07-05] MEDS: Metoprolol Succinate 25 mg XL Tab PO SCH (13:33)
--- NOTE | 2018-07-05 13:48 | CT ---
Date of service: 07/05/2018 PROCEDURE: CT NECK WITHOUT CONTRAST HISTORY: assess tender palpable nodules COMPARISON: None available. TECHNIQUE: CT of the neck without intravenous contrast. Coronal and sagittal reformats generated. Radiation dose: Total exam DLP = 468.45 mGy-cm. This CT exam was performed using one or more of the following dose reduction techniques: Automated exposure control, adjustment of the mA and/or kV according to patient size, and/or use of iterative reconstruction technique. FINDINGS: No radiodense markers may be utilized to localize site of the patient's reportedly tender palpable abnormality. NASOPHARYNX: Unremarkable. SUPRAHYOID NECK: Unremarkable oropharynx, oral cavity, parapharyngeal space and retropharyngeal space. INFRAHYOID NECK: Unremarkable larynx, hypopharynx, and supraglottic space. Vocal cords intact. MASS: None. GLANDS: Parotid and submandibular glands unremarkable. Normal size thyroid gland, without nodule. LYMPH NODES: No significant lymphadenopathy identified. Palpable abnormality is not marked in this unenhanced CT examination with only shotty lymph nodes identified at the bilateral jugulodigastric distribution. CERVICAL SPINE: No fracture or focal lesion. OTHER FINDINGS: None. IMPRESSION: Nonfocal noncontrast CT of the neck. No prominent supra or infrahyoid neck mass identified or gross lymphadenopathy. Shotty jugular digastric lymph nodes are identified bilaterally. CT of the neck with contrast may be considered for follow-up if clinical concern for a palpable abnormality remains.
[2018-07-05 16:36] VITALS: RESP 20
--- NOTE | 2018-07-05 18:21 | CP.PCM.PN ---
<Siobhan Still - Last Filed: 07/05/18 18:18> Subjective - Date & Time of Evaluation Date of Evaluation: 07/05/18 Time of Evaluation: 12:00 - Subjective Subjective: INTERNAL MEDICINE PROGRESS NOTE FOR DR. CUONG Still PGY1 Pt seen and examined at bedside this am. She reports continued anxiety. She reports a preauricular tender nodule thats been bothering. She also reports heat intolerance. She otherwise denies 12 point ROS Objective - Vital Signs/Intake and Output Vital Signs (last 24 hours): Temp Pulse Resp BP Pulse Ox 98.6 F 79 20 115/76 96 07/05/18 16:36 07/05/18 16:36 07/05/18 16:36 07/05/18 16:36 07/05/18 16:36 - Medications Medications: Current Medications Escitalopram Oxalate (Lexapro) 10 mg PO DAILY [facility] Last Admin: 07/05/18 17:13 Dose: 10 mg Lorazepam (Ativan) 0.25 mg PO BID PRN; Protocol PRN Reason: Anxiety Last Admin: 07/05/18 09:07 Dose: 0.25 mg Metoprolol Succinate (Toprol Xl) 25 mg PO BRK [facility] Last Admin: 07/05/18 13:33 Dose: 25 mg - Labs Labs: 07/05/18 06:00 07/05/18 06:00 - Constitutional Appears: Well, Non-toxic, No Acute Distress - Head Exam Head Exam: NORMAL INSPECTION, NORMOCEPHALIC - Eye Exam Eye Exam: EOMI, Normal appearance - ENT Exam ENT Exam: Mucous Membranes Moist, Normal Exam - Neck Exam Additional comments: preauricular lymph noted - Respiratory Exam Respiratory Exam: Clear to Ausculation Bilateral, NORMAL BREATHING PATTERN - Cardiovascular Exam Cardiovascular Exam: REGULAR RHYTHM, +S1, +S2 - GI/Abdominal Exam GI & Abdominal Exam: Soft. absent: Tenderness - Extremities Exam Extremities Exam: Normal Inspection. absent: Calf Tenderness - Back Exam Back Exam: NORMAL INSPECTION - Neurological Exam Neurological Exam: Alert, Awake, Oriented x3 - Psychiatric Exam Psychiatric exam: Normal Affect, Normal Mood - Skin Skin Exam: Dry, Intact, Warm Assessment and Plan - Assessment and Plan (Free Text) Assessment: 47 year old female with past medical history hypertension, hyperthyroidism, and anxiety presented to the emergency room with panic attack and thrombocytosis Plan: Anxiety/panic attack Pt hasn't taken meds since 02/2018 d/t insurance issues start ativan 0.25 mg twice a day as needed for anxiety. psychiatry consulted, follow-up recommendations Thrombocytosis Microcytic anemia. Thrombocytosis likely secondary to iron deficiency anemia menstrual losses. iron studies pending Hematology consulted, f/u recs History of hyperthyroidism Patient has not taken methimazole since 02/2018. TSH increased, FT4 wnl Will consult Dr. Prasad, appreciate recs Hypertension start b-marcelino DVT/GI PPx: SCD Case seen, examined and discussed with attending physician, Dr. Stone <Jazzy Stone R - Last Filed: 07/06/18 07:48> Objective - Vital Signs/Intake and Output Vital Signs (last 24 hours): Temp Pulse Resp BP Pulse Ox 98.1 F 83 20 156/93 H 98 07/06/18 06:00 07/06/18 06:00 07/06/18 06:00 07/06/18 06:00 07/06/18 06:00 Intake and Output: 07/06/18 07/06/18 06:59 18:59 Intake Total 0 Balance 0 - Medications Medications: Current Medications Escitalopram Oxalate (Lexapro) 10 mg PO DAILY [facility] Last Admin: 07/05/18 17:13 Dose: 10 mg Lorazepam (Ativan) 0.25 mg PO BID PRN; Protocol PRN Reason: Anxiety Last Admin: 07/05/18 21:26 Dose: 0.25 mg Metoprolol Succinate (Toprol Xl) 25 mg PO BRK [facility] Last Admin: 07/05/18 13:33 Dose: 25 mg - Labs Labs: 07/06/18 06:00 07/06/18 06:00 Attending/Attestation - Attestation I have personally seen and examined this patient.: Yes I have fully participated in the care of the patient.: Yes I have reviewed all pertinent clinical information, including history, physical exam and plan: Yes Notes (Text): Patient seen and examined by me with resident at 10:10AM on 07/05/18. Case including HPI, physical exam, and assessment and plan discussed with resident. Agree with above with following additions/corrections. Patient is a 47 year old female with past medical history significant for hypertension, hyperthyroidism, and anxiety that presented to the emergency room with panic attack. engineering writer Spencer #[id number] used for translation. Patient states she is feeling better today but is still feeling anxious. States she is having just a little bit of shortness of breath. She denies any chest pain or palpitations. Still with mild abdominal pain secondary to menstruating. No nausea or vomiting. No fevers or chills. No headaches or dizziness. No dysuria. No diarrhea or constipation. Physical exam: General: Awake and alert sitting up in bed in no acute distress HEENT: Normocephalic, atraumatic. Extraocular muscles intact, pupils equal and reactive, no scleral icterus. Oropharynx is pink and moist. No pharyngeal erythema or exudate appreciated. Neck is supple. Positive papable nodule right neck Cardiovascular: Regular rhythm. Normal S1 and S2. No murmurs, rubs, or gallops appreciated Pulmonary: Normal respiratory effort. No rhonchi, rales, or wheezing appreciated. Gastrointestinal: Soft, nondistended. Mild generalized tenderness. Positive bowel sounds all 4 quadrants. No guarding. Musculoskeletal: Moves all extremities. No calf tenderness. No edema appreciated. Central nervous system: AAOx3, CN 2-12 grossly intact. 5/5 muscle strength all extremities. Dermatologic: Skin warm and dry. Assessment and plan: Patient is a 47 year old female with past medical history significant for hypertension, hyperthyroidism, and anxiety that presented to the emergency room with panic attack. 1. Anxiety and panic attack. Patient has not been taking medications since February of 2018. Started on lexapro by psychiatrist. Continue on Ativan 0.25 mg twice a day as needed for anxiety. Psychiatrist following, recommendations appreciated. 2. Hypokalemia. Improved. Replace potassium. Follow up repeat labs in a.m. 3. Thrombocytosis, improved. Microcytic anemia. Thrombocytosis likely secondary to iron deficiency anemia menstrual losses. Fire Adjuster following, recommendations appreciated. Patient received IV iron today. 4. History of hyperthyroidism. Patient has not taken methimazole since February 2018. TSH low, Free T4 within normal limits. Follow up dragline mechanic recommendations. 5. History of hypertension. Unclear what medication patient is on home. Per patient's pharmacy, patient is not on any antihypertensives. Patient started on Toprol XL 25mg PO daily here. 6. Right neck nodule. CT neck per radiologist showed no focal noncontrast CT of the neck, no prominent supra or infrahyoid neck mass identified or gross l ymphadenopathy, shotty jugular digastric lymph nodes are identified bilaterally. Patient to follow up outpatient with primary care doctor if nodule does not resolve. 7. DVT prophylaxis. SCDS and ambulation 8. Patient is a full code. Case was discussed in detail with the patient regarding current diagnosis and treatment plan. All questions answered.
--- NOTE | 2018-07-05 23:44 | CON ---
DATE: 07/05/2018 In short, the patient is a 47-year-old Occ[place] female with reported history of hypertension, hyperthyroidism, anxiety. The patient was admitted on the medical site for evaluation of anxiety and recent panic attacks and TSH very low as well as free T4 is elevated. Psych consult was called for evaluation of anxiety and the patient has history of panic attacks and being on psychotropic medication. The patient was seen and examined, discussed with staff. This blurb writer utilized nursing staff for translation because the patient is Occitan speaking. The patient reported that she came to the hospital for anxiety and her muscles were tensed and the patient was feeling scared. The patient reported at the present moment, she feels little bit better. The patient reported that she never followed up with psychiatrist. Based on the history, this blurb writer was involved into the patient care as a farm service consultant on the medical site and it happened in 02/2018. As per this blurb writer note, the patient was provided with information about local psychiatrist, but the patient did not follow up with anybody. The patient reported that Lexapro as well as Ativan were very beneficial for her and she wants to resume that medications. Besides that, the patient denied feeling hopeless or helpless. Denied hearing voices, denied seeing things. Denied paranoid ideation. The patient denied history of suicidal attempts in the past, denied history of being admitted to the psychiatric inpatient unit. VITAL SIGNS: Reviewed. Temperature 98, pulse is 95, blood pressure 136/88, respirations 18, oxygen saturation 100. MEDICATIONS: Reviewed. Lexapro was resumed 10 mg daily, Ativan 0.25 mg twice a day as needed, Toprol 25 mg twice a day. LABORATORIES: Reviewed. Chemistry reviewed, thyroxine T4 is 13.5 and TSH is 0.02. The patient has electrolytes potassium 3.5. Urinalysis showed urinary tract infection, leukocyte esterase large, blood, as well as protein high. Toxicology reviewed, negative for any substances. MENTAL STATUS EXAMINATION: The patient presented to be anxious. Good personal hygiene, fair eye contact. Speech was normal rate, tone, quality, and quantity. Mood described as anxious. Affect was tearful. Thought process seems to be coherent and goal directed. Thought content, the patient denied visual, auditory, or tactile hallucinations. The patient denied thoughts of harming herself or others. Denies intent or plan. Insight and judgment seems to be fair. Impulses are well controlled. IMPRESSION: Most likely anxiety due to general medical condition, rule out major depressive disorder, rule out generalized anxiety disorder. PLAN: Lexapro was resumed 10 mg daily, Ativan was resumed by medical team. This blurb writer will provide the patient with information about local psychiatrist, printout was given to the patient. The patient is not suicidal. The patient is not homicidal. The patient is not psychotic. The patient posed no imminent danger to self or others. Thank you very much for letting me participate in care of your patient. If the patient will stay in the hospital for the next couple of days, we will follow up and advise accordingly. Thank you very much for letting me participate in care of your patient. Wilma Martinez MD
[2018-07-06 06:40] LABS: BASO # 0.05 K/mm3 (0.0-2.0); EOS # 0.1 (0.0-0.7); EOS % 1.6 % (1.5-5.0); HEMOGLOBIN 9.6 g/dL (12.0-16.0); LYMPH % 42.1 % (22.0-35.0); MEAN CELL VOLUME 75.5 fl (80.0-105.0); MEAN CORPUSCULAR HEMOGLOBIN 23.3 pg (25.0-35.0); MEAN CORPUSCULAR HGB CONC 30.9 g/dl (31.0-37.0); MEAN PLATELET VOLUME 8.6 fl (7.0-11.0); MONO # 0.8 (0.1-0.6); MONO % 16.9 % (1.0-6.0); RBC 4.12 10^6/uL (3.5-6.1); RED CELL DISTRIBUTION WIDTH 18.6 % (11.5-14.5); WHITE BLOOD COUNT 4.9 10^3/uL (4.5-11.0)
[2018-07-06 07:13] VITALS: BP 156/93; PULSE 83; TEMP 98.1; O2SAT 98
[2018-07-06 07:31] LABS: ALB/GLOB RATIO 1.1 (1.1-1.8); ALBUMIN 3.9 g/dL (3.0-4.8); ALT/SGPT 26 U/L (7-56); AST/SGOT 25 U/L (14-36); BLOOD UREA NITROGEN 12 mg/dL (7-21); CALCIUM 9.2 mg/dL (8.4-10.5); GFR NON-AFRICAN AMERICAN > 60
[2018-07-06] MEDS: Metoprolol Succinate 25 mg XL Tab PO SCH (08:47)
--- NOTE | 2018-07-06 13:16 | CP.PCM.DIS ---
<Siobhan Still - Last Filed: 07/06/18 16:10> Provider - Provider Date of Admission: 07/04/18 16:57 Attending physician: Marina Davidson MD Primary care physician: NO PRIMARY CARE PROVIDER Consults: 07/04/18 17:28 Physician Consult Routine Comment: Consulting Provider: Mary Pimentel Consulting Physician: Mary Pimentel Reason for Consult: thrombocytosis Psychiatry Consult Routine Comment: Consulting Provider: Wilma Martinez Consulting Physician: Wilma Martinez Reason for Consult: hx of anxiety 07/05/18 08:12 Endocrinology Consult Routine Comment: Consulting Provider: Imani Prasad Consulting Physician: Imani Prasad Reason for Consult: hyperthyroidism Time Spent in preparation of Discharge (in minutes): 45 Diagnosis - Discharge Diagnosis (1) Anxiety Status: Chronic Priority: Medium (2) Thrombocytosis Status: Acute Hospital Course - Lab Results Lab Results: Micro Results 07/04/18 18:40 Urine,Clean Catch Urine Culture - Preliminary Staphylococcus Aureus Most Recent Lab Values WBC 4.9 10^3/uL (4.5-11.0) 07/06/18 06:00 RBC 4.12 10^6/uL (3.5-6.1) 07/06/18 06:00 Hgb 9.6 g/dL (12.0-16.0) L 07/06/18 06:00 Hct 31.1 % (36.0-48.0) L 07/06/18 06:00 MCV 75.5 fl (80.0-105.0) L 07/06/18 06:00 MCH 23.3 pg (25.0-35.0) L 07/06/18 06:00 MCHC 30.9 g/dl (31.0-37.0) L 07/06/18 06:00 RDW 18.6 % (11.5-14.5) H 07/06/18 06:00 Plt Count 627 10^3/uL (120.0-450.0) H 07/06/18 06:00 MPV 8.6 fl (7.0-11.0) 07/06/18 06:00 Neut % (Auto) 38.4 % (50.0-68.0) L 07/06/18 06:00 Lymph % (Auto) 42.1 % (22.0-35.0) H 07/06/18 06:00 [place] % (Auto) 16.9 % (1.0-6.0) H 07/06/18 06:00 Eos % (Auto) 1.6 % (1.5-5.0) 07/06/18 06:00 Baso % (Auto) 1.0 % (0.0-3.0) 07/06/18 06:00 Lymph # (Auto) 2.0 (1.2-3.4) 07/06/18 06:00 [place] # (Auto) 0.8 (0.1-0.6) H 07/06/18 06:00 Eos # (Auto) 0.1 (0.0-0.7) 07/06/18 06:00 Baso # (Auto) 0.05 K/mm3 (0.0-2.0) 07/06/18 06:00 Absolute Neuts (auto) 1.86 (1.4-6.5) 07/06/18 06:00 Retic Count 1.19 % (0.5-1.5) 07/05/18 06:00 Sodium 138 mmol/L (132-148) 07/06/18 06:00 Potassium 4.6 mmol/L (3.6-5.0) 07/06/18 06:00 Chloride 108 mmol/L (98-107) H 07/06/18 06:00 Carbon Dioxide 24 mmol/L (21-33) 07/06/18 06:00 Anion Gap 11 (10-20) 07/06/18 06:00 BUN 12 mg/dL (7-21) 07/06/18 06:00 Creatinine 0.6 mg/dl (0.7-1.2) L 07/06/18 06:00 Est GFR ( Amer) > 60 07/06/18 06:00 Est GFR (Non-Af Amer) > 60 07/06/18 06:00 Random Glucose 90 mg/dL (70-110) 07/06/18 06:00 Calcium 9.2 mg/dL (8.4-10.5) 07/06/18 06:00 Phosphorus 3.1 mg/dL (2.5-4.5) 07/05/18 06:00 Magnesium 2.2 mg/dL (1.7-2.2) 07/05/18 06:00 Iron 10 ug/dL (45-180) L 07/04/18 18:15 TIBC 454 ug/dL (265-497) 07/04/18 18:15 % Saturation 2 % (20-55) L 07/04/18 18:15 Transferrin 363.11 mg/dL (206-381) 07/04/18 18:40 Ferritin 5.7 ng/mL 07/04/18 17:00 Total Bilirubin 0.2 mg/dL (0.2-1.3) 07/06/18 06:00 AST 25 U/L (14-36) 07/06/18 06:00 ALT 26 U/L (7-56) 07/06/18 06:00 Alkaline Phosphatase 112 U/L (38-126) 07/06/18 06:00 Total Protein 7.5 g/dL (5.8-8.3) 07/06/18 06:00 Albumin 3.9 g/dL (3.0-4.8) 07/06/18 06:00 Globulin 3.5 gm/dL 07/06/18 06:00 Albumin/Globulin Ratio 1.1 (1.1-1.8) 07/06/18 06:00 Free T4 1.43 ng/dL (0.78-2.19) 07/04/18 18:40 Thyroxine (T4) 13.5 ug/dL (5.5-11.0) H 07/05/18 06:00 TSH 3rd Generation < 0.02 mIU/mL (0.46-4.68) L 07/04/18 18:15 Urine Color Red (YELLOW) 07/04/18 18:23 Urine Appearance Cloudy (CLEAR) 07/04/18 18:23 Urine pH 6.5 (4.7-8.0) 07/04/18 18:23 Ur Specific [place] <= 1.005 (1.005-1.035) 07/04/18 18:23 Urine Protein 100 mg/dL (<30 mg/dL) H 07/04/18 18:23 Urine Glucose (UA) Negative mg/dL (NEGATIVE) 07/04/18 18:23 Urine Ketones Negative mg/dL (NEGATIVE) 07/04/18 18:23 Urine Blood Large (NEGATIVE) H 07/04/18 18:23 Urine Nitrate Negative (NEGATIVE) 07/04/18 18:23 Urine Bilirubin Negative (NEGATIVE) 07/04/18 18:23 Urine Urobilinogen 0.2 E.U./dL (<1 E.U./dL) 07/04/18 18:23 Ur Leukocyte Esterase Large Radha/uL (NEGATIVE) H 07/04/18 18:23 Urine RBC Tntc /hpf (0-2) H 07/04/18 18:23 Urine WBC 10 - 15 /hpf (0-6) H 07/04/18 18:23 Ur Epithelial Cells Many /hpf (0-5) H 07/04/18 18:23 Salicylates 4 mg/dL (2.0-20.0) 07/04/18 15:44 Urine Opiates Screen Negative (NEGATIVE) 07/04/18 18:23 Urine Methadone Screen Negative (NEGATIVE) 07/04/18 18:23 Acetaminophen < 10.0 ug/ml (10.0-20.0) L 07/04/18 15:44 Ur Barbiturates Screen Negative (NEGATIVE) 07/04/18 18:23 Ur Phencyclidine Scrn Negative (NEGATIVE) 07/04/18 18:23 Ur Amphetamines Screen Negative (NEGATIVE) 07/04/18 18:23 U Benzodiazepines Scrn Negative (NEGATIVE) 07/04/18 18:23 U Oth Cocaine Metabols Negative (NEGATIVE) 07/04/18 18:23 U Cannabinoids Screen Negative (NEGATIVE) 07/04/18 18:23 Alcohol, Quantitative < 10 mg/dL (0-10) 07/04/18 15:44 - Hospital Course Hospital Course: Upon Admission: 47 year old Latvian-speaking female with PMH of HTN, hyperthyroidism, and anxiety who was brought in by EMS for concern of worsening anxiety and recent panic attack. Patient states she was at school at the time when she went to see the school nurse who informed her she should go to the hospital because of a panic attack. She admits to worsening anxiety for the past 3 days but has had panic attacks in the past as well. She states she has been diagnosed with hypertension and hyperthyroidism but has had difficulty getting her medications due to cost. She was asked to follow up with [facility] after her last discharge but did not keep the appointment. She was unaware that the clinic downstairs is [facility]. She states she did follow up with a clinic for a work physical at a [facility] on [address] but she does not recall the name of the physician. Hospital Course: Pt was continued on previous paxil medication that she was prescribed in 02/2018. She was also given ativan 0.25mg twice a day. Pt reported she hasn't taken her methimazole since 02/2018. Her TSH was elevated, but FT4 wnl. Endocrinology was consulted. Methimazole was restarted at 10mg by endocrinology. Hematology was consulted for thrombocytosis. Pt reported a "nodule" in her preauricular region. CT soft tissue without contrast was done which showed "no prominent supra or infrahyoid neck mass identified or gross lymphadenopathy. Shotty jugular digastric lymph nodes are identified bilaterally. CT of the neck with contrast may be considered for follow-up if clinical concern for a palpable abnormality remains." Pt was also started on metoprolol succinate 25mg for hypertension. Upon Discharge:. Pt is feeling better and symptoms have improved. Vital signs are stable. Pt stable to discharge from psychiatry and endocrinology point. Pt instructed, in detail regarding medication compliance, outpatient followup and to return to ED if symptoms return. Interpretor ID: [id number] Discharge Exam - Head Exam Head Exam: NORMAL INSPECTION, NORMOCEPHALIC - Eye Exam Eye Exam: EOMI, Normal appearance - ENT Exam ENT Exam: Mucous Membranes Moist - Neck Exam Additional comments: Pre auricular, well-circumscribed, mobile non-tender lymph node noted - Respiratory Exam Respiratory Exam: NORMAL BREATHING PATTERN, UNREMARKABLE - Cardiovascular Exam Cardiovascular Exam: REGULAR RHYTHM, +S1, +S2 - GI/Abdominal Exam GI & Abdominal Exam: Normal Bowel Sounds, Unremarkable - Extremities Exam Extremities exam: normal inspection - Back Exam Back exam: NORMAL INSPECTION - Neurological Exam Neurological exam: Alert, Oriented x3 - Psychiatric Exam Psychiatric exam: Normal Affect, Normal Mood - Skin Skin Exam: Dry, Warm Discharge Plan - Discharge Medications Prescriptions: Escitalopram [Lexapro] 10 mg PO DAILY #14 tab RX: methIMAzole [Tapazole] 10 mg PO BID #28 tab Metoprolol Succinate XL [Toprol XL] 25 mg PO BRK #14 tab - Follow Up Plan Condition: STABLE Disposition: HOME/ ROUTINE Instructions: Thrombocytosis Additional Instructions: Please establish care with a director enterprise systems (stomach doctor) to set up an appointment for colonoscopy (referral for the director enterprise systems you saw here has been provided) as an outpatient. Please follow up with Dr. Crowder, Psychiatrist, as an outpatient. You will need to follow up for refills on your medications. Please check your insurance card when you receive it - if you have a [facility] card, please call and make an appointment at the [facility] with Dr. Ibrahim (Referral has been provided in your discharge instructions). If you have a [facility] card, please call the doctor on your card and make a follow up appointment. Please do this within 3-5 days, whoever you follow up with. Please follow up with Dr. Suarez in one week for further assessment of your anemia and possible additional IV Iron. Please establish care with an dinkey press operator to manage your hyperthyroidism; we have provided a referral for one in the area. You will need to see your primary care doctor or dinkey press operator for refills on your methimazole for your hyperthyroidism. If your symptoms return, please report to the nearest emergency room immediately. Referrals: [facility] [place] Nehemiah Suarez MD [Medical Doctor] - Kyle Wills MD [Staff Provider] - Jerri Ibrahim MD [Medical Doctor] - Godfrey Mock DO [Staff Provider] - Michelle Crowder MD [Staff Provider] - <Jazzy Stone R - Last Filed: 07/06/18 16:59> Provider - Provider Date of Admission: 07/04/18 16:57 Attending physician: Marina Davidson MD Primary care physician: NO PRIMARY CARE PROVIDER Consults: 07/04/18 17:28 Physician Consult Routine Comment: Consulting Provider: Mary Pimentel Consulting Physician: Mary Pimentel Reason for Consult: thrombocytosis Psychiatry Consult Routine Comment: Consulting Provider: Wilma Martinez Consulting Physician: Wilma Martinez Reason for Consult: hx of anxiety 07/05/18 08:12 Endocrinology Consult Routine Comment: Consulting Provider: Imani Prasad Consulting Physician: Imani Prasad Reason for Consult: hyperthyroidism Hospital Course - Lab Results Lab Results: Micro Results 07/04/18 18:40 Urine,Clean Catch Urine Culture - Preliminary Staphylococcus Aureus Most Recent Lab Values WBC 4.9 10^3/uL (4.5-11.0) 07/06/18 06:00 RBC 4.12 10^6/uL (3.5-6.1) 07/06/18 06:00 Hgb 9.6 g/dL (12.0-16.0) L 07/06/18 06:00 Hct 31.1 % (36.0-48.0) L 07/06/18 06:00 MCV 75.5 fl (80.0-105.0) L 07/06/18 06:00 MCH 23.3 pg (25.0-35.0) L 07/06/18 06:00 MCHC 30.9 g/dl (31.0-37.0) L 07/06/18 06:00 RDW 18.6 % (11.5-14.5) H 07/06/18 06:00 Plt Count 627 10^3/uL (120.0-450.0) H 07/06/18 06:00 MPV 8.6 fl (7.0-11.0) 07/06/18 06:00 Neut % (Auto) 38.4 % (50.0-68.0) L 07/06/18 06:00 Lymph % (Auto) 42.1 % (22.0-35.0) H 07/06/18 06:00 [place] % (Auto) 16.9 % (1.0-6.0) H 07/06/18 06:00 Eos % (Auto) 1.6 % (1.5-5.0) 07/06/18 06:00 Baso % (Auto) 1.0 % (0.0-3.0) 07/06/18 06:00 Lymph # (Auto) 2.0 (1.2-3.4) 07/06/18 06:00 [place] # (Auto) 0.8 (0.1-0.6) H 07/06/18 06:00 Eos # (Auto) 0.1 (0.0-0.7) 07/06/18 06:00 Baso # (Auto) 0.05 K/mm3 (0.0-2.0) 07/06/18 06:00 Absolute Neuts (auto) 1.86 (1.4-6.5) 07/06/18 06:00 Retic Count 1.19 % (0.5-1.5) 07/05/18 06:00 Sodium 138 mmol/L (132-148) 07/06/18 06:00 Potassium 4.6 mmol/L (3.6-5.0) 07/06/18 06:00 Chloride 108 mmol/L (98-107) H 07/06/18 06:00 Carbon Dioxide 24 mmol/L (21-33) 07/06/18 06:00 Anion Gap 11 (10-20) 07/06/18 06:00 BUN 12 mg/dL (7-21) 07/06/18 06:00 Creatinine 0.6 mg/dl (0.7-1.2) L 07/06/18 06:00 Est GFR ( Amer) > 60 07/06/18 06:00 Est GFR (Non-Af Amer) > 60 07/06/18 06:00 Random Glucose 90 mg/dL (70-110) 07/06/18 06:00 Calcium 9.2 mg/dL (8.4-10.5) 07/06/18 06:00 Phosphorus 3.1 mg/dL (2.5-4.5) 07/05/18 06:00 Magnesium 2.2 mg/dL (1.7-2.2) 07/05/18 06:00 Iron 10 ug/dL (45-180) L 07/04/18 18:15 TIBC 454 ug/dL (265-497) 07/04/18 18:15 % Saturation 2 % (20-55) L 07/04/18 18:15 Transferrin 363.11 mg/dL (206-381) 07/04/18 18:40 Ferritin 5.7 ng/mL 07/04/18 17:00 Total Bilirubin 0.2 mg/dL (0.2-1.3) 07/06/18 06:00 AST 25 U/L (14-36) 07/06/18 06:00 ALT 26 U/L (7-56) 07/06/18 06:00 Alkaline Phosphatase 112 U/L (38-126) 07/06/18 06:00 Total Protein 7.5 g/dL (5.8-8.3) 07/06/18 06:00 Albumin 3.9 g/dL (3.0-4.8) 07/06/18 06:00 Globulin 3.5 gm/dL 07/06/18 06:00 Albumin/Globulin Ratio 1.1 (1.1-1.8) 07/06/18 06:00 Free T4 1.43 ng/dL (0.78-2.19) 07/04/18 18:40 Thyroxine (T4) 13.5 ug/dL (5.5-11.0) H 07/05/18 06:00 TSH 3rd Generation < 0.02 mIU/mL (0.46-4.68) L 07/04/18 18:15 Urine Color Red (YELLOW) 07/04/18 18:23 Urine Appearance Cloudy (CLEAR) 07/04/18 18:23 Urine pH 6.5 (4.7-8.0) 07/04/18 18:23 Ur Specific [place] <= 1.005 (1.005-1.035) 07/04/18 18:23 Urine Protein 100 mg/dL (<30 mg/dL) H 07/04/18 18:23 Urine Glucose (UA) Negative mg/dL (NEGATIVE) 07/04/18 18:23 Urine Ketones Negative mg/dL (NEGATIVE) 07/04/18 18:23 Urine Blood Large (NEGATIVE) H 07/04/18 18:23 Urine Nitrate Negative (NEGATIVE) 07/04/18 18:23 Urine Bilirubin Negative (NEGATIVE) 07/04/18 18:23 Urine Urobilinogen 0.2 E.U./dL (<1 E.U./dL) 07/04/18 18:23 Ur Leukocyte Esterase Large Radha/uL (NEGATIVE) H 07/04/18 18:23 Urine RBC Tntc /hpf (0-2) H 07/04/18 18:23 Urine WBC 10 - 15 /hpf (0-6) H 07/04/18 18:23 Ur Epithelial Cells Many /hpf (0-5) H 07/04/18 18:23 Salicylates 4 mg/dL (2.0-20.0) 07/04/18 15:44 Urine Opiates Screen Negative (NEGATIVE) 07/04/18 18:23 Urine Methadone Screen Negative (NEGATIVE) 07/04/18 18:23 Acetaminophen < 10.0 ug/ml (10.0-20.0) L 07/04/18 15:44 Ur Barbiturates Screen Negative (NEGATIVE) 07/04/18 18:23 Ur Phencyclidine Scrn Negative (NEGATIVE) 07/04/18 18:23 Ur Amphetamines Screen Negative (NEGATIVE) 07/04/18 18:23 U Benzodiazepines Scrn Negative (NEGATIVE) 07/04/18 18:23 U Oth Cocaine Metabols Negative (NEGATIVE) 07/04/18 18:23 U Cannabinoids Screen Negative (NEGATIVE) 07/04/18 18:23 Alcohol, Quantitative < 10 mg/dL (0-10) 07/04/18 15:44 Attending/Attestation - Attestation I have personally seen and examined this patient.: Yes I have fully participated in the care of the patient.: Yes I have reviewed all pertinent clinical information, including history, physical exam and plan: Yes Notes (Text): Patient seen and examined by me with resident 10:40AM and prior to discharge on 07/06/18. Case including discharge plan discussed with resident. Agree with above with following additions/corrections. Patient is a 47 year old female with past medical history significant for hypertension, hyperthyroidism, and anxiety that presented to the emergency room with panic attack. Please see H&P for full details. Patient was admitted with anxiety and panic attack, hypokalemia, thrombocytosis, hyperthyroidism, and hypertension. Patient was in the hospital in February 2018 for anxiety. Some Paxil however she did not continue this medication after being discharged. Patient was restarted on her Paxil and psychiatrist was consulted. Patient was also placed on Ativan twice a day as needed. Per psychiatrist, patient was placed on Lexapro and Paxil stopped. Per psychiatrist, patient to follow up outpatient, this was discussed with Dr. Crowder via phone. Patient was also found to have thrombocytosis and microcytic anemia. Iron deficient likely secondary to menstrual losses. She was menstruating on admission and hence hemoglobin was slightly downtrending. Patient was seen by a operator and was given IV iron. Case was discussed with Dr. Suarez who recommended patient follow- up in the office for continued IV iron infusions. Patient was also advised to follow-up with a director enterprise systems for colonoscopy. Patient was found to have hypokalemia which resolved with oral replacement. Patient was also found to be hyperthyroid in February 2018 and was started on methimazole at that time. However, patient did not continue this medication. TSH was less than 0.02. 4 was 1.43. T4 was 13.5. Tube Winder was consulted. She was placed on methimazole. This discussed with Dr. Prasad who suggested patient be discharged on methimazole 10 mg twice a day and follow-up with an dinkey press operator as an outpatient. UDS was negative. UA showed possible urinary infection. Urine cultures positive for staph aureus however, patient was completely asymptomatic and this was not treated. Patient did not have leukocytosis and was afebrile. Iron was 10, TIBC was 454, percent saturation was 2, transferrin was 363.11, ferritin was 5.7. Patient also complained of a nodule on the right side of neck. CT neck per radiologist showed no focal noncontrast CT of the neck, no prominent supra or infrahyoid neck mass identified or gross lymphadenopathy, shotty jugular digastric lymph nodes are identified bilaterally. Patient was advised to follow up outpatient with primary care doctor if the nodule does not resolve. Patient also has a history of hypertension. She was not taking medications for this. Patient was started on Toprol-XL. Patient was feeling much better. She was cleared for discharge by Dr. Suarez, Dr. Prasad, and psychiatrist Dr. Crowder. Patient was given prescription for Lexapro, metoprolol, methimazole, and Ativan. Patient was discharged home. On day of discharge, patient stated she was feeling much better. lead miner # [id number] used for translation. Shortness of breath was resolved. Anxiousness improved. Patient denied any chest pain or palpitations. Patient denied nausea or vomiting. No headache or dizziness. No change in vision or light headedness. No fevers or chills. No dysuria or burning with urination. No diarrhea or constipation. No suicidal or homicidal ideations. Physical exam: General: Awake and alert sitting up in bed in no acute distress HEENT: Normocephalic, atraumatic. Extraocular muscles intact, pupils equal and reactive, no scleral icterus. Oropharynx is pink and moist. No pharyngeal erythe ma or exudate appreciated. Neck is supple. Positive papable nodule right neck Cardiovascular: Regular rhythm. Normal S1 and S2. No murmurs, rubs, or gallops appreciated Pulmonary: Normal respiratory effort. No rhonchi, rales, or wheezing appreciated. Gastrointestinal: Soft, nondistended. Mild generalized tenderness. Positive bowel sounds all 4 quadrants. No guarding. Musculoskeletal: Moves all extremities. No calf tenderness. No edema appreciated. Central nervous system: AAOx3, CN 2-12 grossly intact. 5/5 muscle strength all extremities. Dermatologic: Skin warm and dry. Please see chart for full details. Follow up instructions: Patient to follow up with the primary care doctor within 3-5 days. Patient to call number on her insurance card for primary care doctor information. If patient does not have primary care doctor she may follow-up with the [facility] with Dr. Ibrahim (Referral has been provided in your discharge instructions). Patient to follow-up with Dr. Suarez in one week for continued IV iron. Patient to follow-up with psychiatrist Dr. Crowder as an outpatient. Patient also advised to follow-up with a director enterprise systems for colonoscopy. Patient also advised follow-up with primary care doctor or dinkey press operator for hyperthyroidism management. Patient to take medications as prescribed. Patient to get refills needed on medications from his primary care doctor. All instructions explained to the patient in detail. Patient both understands and agrees to all instructions. Written instructions also given. Time spent in discharging the patient including chart review, medication reconciliation, discussion with the patient, director of graduate medical education, consultants, and nursing staff was approximately 40 minutes.
--- NOTE | 2018-07-06 16:21 | CON ---
DATE: 07/06/2018 HEMATOLOGY CONSULTATION HISTORY OF PRESENT ILLNESS: This is a 47-year-old woman with anemia. PHYSICAL EXAMINATION: SKIN: No petechiae. No bruises. No telangiectasia. HEENT: Anicteric. No mucosal bleeding. NODES: Nonpalpable in the axillary, cervical, supraclavicular and inguinal regions. LUNGS: Clear at present. No vertebral tenderness. The patient is able to lie flat. HEART: S1, S2. ABDOMEN: Shows no liver, no spleen, no tenderness, no ascites, no rebound. EXTREMITIES: No edema. CENTRAL NERVOUS SYSTEM: No focal finding. ASSESSMENT AND PLAN: When the patient was admitted to the hospital, she had a hemoglobin of 10.5. It has been drifting down to 9.6. The MCV 75 and platelet count 738 drifting down to about 630 with monocytosis, the monocytes are about 17%, lymphs 42, and neutrophils 38%. Peripheral smear, the monocytes, there are no Murtaza cells. No abnormal lymphocytes. The iron, TIBC came back as 2% saturation, ferritin 5.7. We also have to rule out a JAK2 mutation causing an elevated thrombocytosis, but very frequently iron deficiency can cause this as well. At this point, my feeling is we should give the intravenous iron which we started with Venofer and she should continue to take the iron peripherally, ferrous fumarate one tab p.o. intravenous iron and also she should have the gastrointestinal workup she is 47 years old, she may be bleeding from the intestine. So, on that, I gave her the intravenous iron support and we will wait gastrointestinal evaluation. Nehemiah Suarez MD
--- NOTE | 2018-07-07 01:53 | CON ---
DATE: 07/06/2018 ENDOCRINOLOGY CONSULT HISTORY OF PRESENT ILLNESS: This is a 47-year-old female with known history of hyperthyroidism, currently off medications because of insurance constraints and is now being referred for endocrine evaluation and management. PAST MEDICAL HISTORY: History of hyperthyroidism, previously on methimazole given as 20 mg once daily, history of hypertension and dyslipidemia, history of generalized anxiety and panic attacks. FAMILY HISTORY: Positive for hypertension and diabetes. SOCIAL HISTORY: The patient has a supportive family. No known substance use. REVIEW OF SYSTEMS: Admits to generalized body weakness with episodic bouts of dizziness and lightheadedness with marked insomnia and restlessness and agitation. No chest pains but admits to episodic palpitations and shortness of breath, especially on exertion. Her oral intake has been variable with nausea, dyspepsia and hyperdefecation. PHYSICAL EXAMINATION: GENERAL: This is an average build female in no apparent distress. VITAL SIGNS: Blood pressure of 140/80, pulse of 100 beats per minute and regular, temperature 98, respirations 20, height is 5 feet 4 inches, weight is 135 pounds. HEENT: Head normocephalic. Eyes anicteric with pink conjunctivae. Funduscopy not possible at this time. Ears, nose and throat otherwise normal. NECK: Supple. Thyroid gland shows nodular thyromegaly which is firm and nontender. No overt bruits or thyroid nodules noted. HEART: Hyperdynamic precordium. S1, S2 is rapid and regular. LUNGS: Clear to auscultation. ABDOMEN: Flat, soft, with positive bowel sounds. EXTREMITIES: No peripheral edema. Pulses are +2 bilaterally. LABORATORY DATA: Her thyroxine level is 13.5 with a TSH of less than 0.02 and a free T4 of 1.43. Her chemistries, BUN of 12, sodium 138, potassium 4.6, chloride 108, CO2 of 24, glucose 90 and creatinine 0.6. ASSESSMENT: This is a 47-year-old female with overt hyperthyroidism related to drug omission from recent financial constraints, presenting here with overt hyperthyroidism both historically, clinically and biochemically, with underlying diffuse toxic goiter. PLAN OF MANAGEMENT: We will modify her current medical therapy and initiate methimazole given as 10 mg p.o. t.i.d. to start today. We will obtain total and free T4 and TSH with a thyroid stimulating immunoglobulin and a thyroid peroxidase antibody which will confirm and/or indicate the presence of underlying thyroid autoimmunity. We will obtain serial chemistries and supplement accordingly as needed. We will follow. Imani Prasad MD
== END 2018-07-06 15:46 | disposition home or self-care (01) | DRG 663 ==
LOC: ED 15:21 → ERH 16:57 → 3RNO 21:42
PROVIDERS: ADMIT Internal Medicine; ATTEND Internal Medicine
DX: D50.9 Iron deficiency anemia, unspecified (principal); D47.3 Essential (hemorrhagic) thrombocythemia; N39.0 Urinary tract infection, site not specified; D72.821 Monocytosis (symptomatic); E05.00 Thyrotoxicosis with diffuse goiter without thyrotoxic crisis or storm; I10 Essential (primary) hypertension; E87.6 Hypokalemia; F41.0 Panic disorder [episodic paroxysmal anxiety]; E78.5 Hyperlipidemia, unspecified; F06.4 Anxiety disorder due to known physiological condition

== ENCOUNTER 2018-09-15 10:28 | Emergency (ER) | payer MEDICAID ==
[2018-09-15 10:28] VITALS: BMI 19.3
[2018-09-15] MEDS ORDERED: Labetalol 5 mg/ml Inj 20ML IV STA ×2 (11:07→13:29)
--- NOTE | 2018-09-15 11:20 | ED PDOC ---
Arrival/HPI - General Chief Complaint: High Blood Pressure Time Seen by Provider: 09/15/18 10:56 Historian: Patient - History of Present Illness Narrative History of Present Illness (Text): 09/15/18 10:56 Leonard Rosenberg is a 47 year old female, with a past medical history of hypertension on metropolol and lisinopril, drug abuse, depression, anxiety, who presents to the emergency department complaining of hypertension since yest erday. Patient notes mild intermittent chest pain described as pressure since yesterday morning associated with elevated pressures. Patient also informs of palpitations with hypertension. Patient's blood pressure was noted to be elevated in PMD's office yesterday and was advised to visit ED but was unable to find child care team lead. Patient took scheduled doses of anti-HTN medication today. Denies suicidal or homicidal ideation. Denies fevers, chills, night sweats. Denies headache, dizziness. Denies vision changes. Denies abdominal pain, nausea, vomiting, diarrhea. Denies dysuria, hematuria. Denies back pain or neck pain. Denies rash. No other complaints. PMD: Dr. Willis Time/Duration: 24 hours Symptom Onset: Sudden Symptom Course: Unchanged Activities at Onset: Light Context: Home Past Medical History - Provider Review Nursing Documentation Reviewed: Yes - Infectious Disease Hx of Infectious Diseases: None - Tetanus Immunization Tetanus Immunization: Unknown - Reproductive Menopause: No - Past Medical History Past Medical History: No Previous - Cardiac Hx Hypertension: Yes - Pulmonary Hx Respiratory Disorders: No - Neurological Hx Neurological Disorder: No - HEENT Hx HEENT Disorder: No - Renal Hx Renal Disorder: No - Endocrine/Metabolic Hx Endocrine Disorders: Yes Hx Hyperthyroidism: Yes - Hematological/Oncological Hx Blood Disorders: No - Integumentary Hx Dermatological Disorder: No - Musculoskeletal/Rheumatological Hx Falls: No - Gastrointestinal Hx Gastrointestinal Disorders: No - Genitourinary/Gynecological Hx Genitourinary Disorders: No - Psychiatric Hx Psychophysiologic Disorder: Yes Hx Anxiety: Yes Hx Depression: Yes Hx Substance Use: No - Past Surgical History Past Surgical History: No Previous - Anesthesia Hx Anesthesia: Yes Hx Anesthesia Reactions: No Hx Malignant Hyperthermia: No - Suicidal Assessment Feels Threatened In Home Enviroment: Yes Family/Social History - Physician Review Nursing Documentation Reviewed: Yes Family/Social History: Unknown Family HX Smoking Status: Never Smoked Hx Alcohol Use: No Hx Substance Use: No Hx Substance Use Treatment: No Allergies/Home Meds Allergies/Adverse Reactions: Allergies No Known Allergies Allergy (Verified 01/15/16 01:50) Home Medications: Home Meds Medication Instructions Recorded Confirmed LORazepam [Ativan] 0.5 mg PO AMHS PRN 07/04/18 09/15/18 Review of Systems - Physician Review All systems were reviewed & negative as marked: Yes - Review of Systems Constitutional: absent: Fatigue, Weight Change, Fevers, Night Sweats, Other (chills) Eyes: absent: Vision Changes, Photophobia, Eye Pain ENT: absent: Hearing Changes Respiratory: absent: SOB, Cough Cardiovascular: Chest Pain (intermittent describes as pressure), Other (hypertension). absent: Palpitations, Edema, Calf Pain, GEE Gastrointestinal: absent: Abdominal Pain, Diarrhea, Nausea, Vomiting Genitourinary Female: absent: Dysuria, Hematuria Musculoskeletal: absent: Back Pain, Neck Pain Skin: absent: Rash Neurological: absent: Headache, Dizziness Psychiatric: absent: Suicidal Ideation, Other (homicidal ideation) Physical Exam Vital Signs Reviewed: Yes Vital Signs Temp Pulse Resp BP Pulse Ox 09/15/18 10:32 98.7 F 90 18 190/108 H 100 Temperature: Afebrile Blood Pressure: Hypertensive Pulse: Regular Respiratory Rate: Normal Appearance: Positive for: Well-Appearing, Non-Toxic, Comfortable Pain Distress: None Mental Status: Positive for: Alert and Oriented X 3 - Systems Exam Head: Present: Atraumatic, Normocephalic Pupils: Present: PERRL Extroacular Muscles: Present: EOMI Conjunctiva: Present: Normal Mouth: Present: Moist Mucous Membranes, Dry. No: Drooling Neck: Present: Normal Range of Motion. No: Meningeal Signs, MIDLINE TENDERNESS Respiratory/Chest: Present: Clear to Auscultation, Good Air Exchange. No: Respiratory Distress, Accessory Muscle Use, Wheezes, Rales, Rhonchi Cardiovascular: Present: Regular Rate and Rhythm, Normal S1, S2. No: Murmurs, Rub, Gallop Abdomen: Present: Normal Bowel Sounds. No: Tenderness, Distention, Peritoneal Signs, Rebound, Guarding Back: Present: Normal Inspection. No: CVA Tenderness, Midline Tenderness Upper Extremity: Present: Normal Inspection, Normal ROM, NORMAL PULSES, Neurovascularly Intact, Capillary Refill < 2s. No: Cyanosis, Edema Lower Extremity: Present: Normal Inspection, NORMAL PULSES, Normal ROM, Neurovascularly Intact, Capillary Refill < 2 s. No: Edema Neurological: Present: GCS=15, CN II-XII Intact, Speech Normal, Motor Func Grossly Intact, Normal Sensory Function Skin: Present: Warm, Dry, Normal Color. No: Rashes Psychiatric: Present: Alert, Oriented x 3, Normal Insight, Normal Concentration Medical Decision Making ED Course and Treatment: 09/15/18 10:56 Impression: Leonard Rosenberg is a 47 year old female, with a past medical history of hypertension on lisinopril and metropolol, depression, and anxiety, who presents to the emergency department complaining of hypertension since yesterday. Patient informs of associated intermittent chest pain described as pressure since yesterday. Patient was advised to present to ED by PMD yesterday but was unable to find child care team lead. Patient informs taking scheduled doses of medications today. Denies F/C/N/V/D. No suicidal or homicidal ideation. No depression. Pt denies any current drug abuse or OD on any medications. Exam is unremarkable. Low pretest wells, PERCED out. Heart score: AGE: 1 RF: 1 Story: 0 EK trop: Pend Plan: -- EKG -- Labs -- Chest X-Ray -- Trandate -- Reassess and disposition Prior Visits: Notes and results from previous visits were reviewed. Progress Notes: 09/15/18 11:10 Reviewed EKG, shows: NSR at 76 BPM. No STEMI. 09/15/18 12:54 Pt endorsed headache, not sudden in onset, not worst of life and without any FND. Normal neuro exam bedside labs unremarkable CXR unremarkable pt in NAD pending CTH results BP improved 1410 CTH unremarkable symptoms fully resolved, pt in NAD bp 148 systolic, clear for d/c home with return indications and f/u, pt agreeable to plan endorsed to f/u cards, pmd and neuro regarding cp, htn and holguin Disposition/Present on Arrival - Present on Arrival Any Indicators Present on Arrival: No History of DVT/PE: No History of Uncontrolled Diabetes: No Urinary Catheter: No History of Decub. Ulcer: No History Surgical Site Infection Following: None - Disposition Have Diagnosis and Disposition been Completed?: Yes Diagnosis: Hypertensive urgency, Chest pain, Headache Disposition: HOME/ ROUTINE Disposition Time: 14:13 Condition: STABLE Discharge Instructions (ExitCare): Chest Pain (ED), High Blood Pressure (DC), Headache, Adult (DC) Print Language: DANISH Additional Instructions: LEONARD ROSENBERG, thank you for letting us take care of you today. Your provider was Edison Gifford and you were treated for high blood pressure ( ). The emergency medical care you received today was directed at your acute symptoms. If you were prescribed any medication, please fill it and take as directed. It may take several days for your symptoms to resolve. Return to the Emergency Department if your symptoms worsen, do not improve, or if you have any other problems. Please contact your doctor or call one of the physicians/clinics you have been referred to that are listed on the Patient Visit Information form that is included in your discharge packet. Bring any paperwork you were given at discharge with you along with any medications you are taking to your follow up visit. Our treatment cannot replace ongoing medical care by a primary care provider outside of the emergency department. Thank you for allowing the [facility] team to be part of your care today. If you had an X-Ray or CT scan: A Radiologist will review the ED reading if any change in treatment is needed we will contact you. If you had a blood, urine, or wound culture: It will take several days for the results, if any change in treatment is needed we will contact you. If you had an STI test: It will take 48 hours for the results. Please call after 1 week if you have not heard back. Referrals: Eder Duong MD [Staff Provider] - Follow up with primary Alejo Billings MD [Staff Provider] - Follow up with primary Mercy Willis DO [Family Provider] - Follow up with primary [facility] [place] [Outside] - Follow up with primary [facility] [Outside] - [place] up with primary [facility] [place] - Follow up with primary Forms: [facility] (Wallisian)
[2018-09-15 11:45] VITALS: O2SAT 99
[2018-09-15 11:52] LABS: BASO # 0.05 K/mm3 (0.0-2.0); EOS % 0.8 % (1.5-5.0); HEMOGLOBIN 11.4 g/dL (12.0-16.0); LYMPH # 2.2 (1.2-3.4); LYMPH % 43.2 % (22.0-35.0); MEAN CELL VOLUME 82.1 fl (80.0-105.0); MEAN CORPUSCULAR HEMOGLOBIN 25.6 pg (25.0-35.0); MEAN CORPUSCULAR HGB CONC 31.1 g/dl (31.0-37.0); MEAN PLATELET VOLUME 9.2 fl (7.0-11.0); MONO # 0.5 (0.1-0.6); MONO % 10.8 % (1.0-6.0); RBC 4.46 10^6/uL (3.5-6.1)
[2018-09-15 11:59] LABS: ALB/GLOB RATIO 1.2 (1.1-1.8); ALBUMIN 4.3 g/dL (3.0-4.8); ALT/SGPT 19 U/L (7-56); AST/SGOT 23 U/L (14-36); BLOOD UREA NITROGEN 15 mg/dL (7-21); CALCIUM 9.4 mg/dL (8.4-10.5); GFR NON-AFRICAN AMERICAN > 60
[2018-09-15 12:11] LABS: TROPONIN I < 0.01 ng/mL
[2018-09-15] MEDS ORDERED: Acetaminophen 650mg/20.3ml solution UD PO STA (12:24)
--- NOTE | 2018-09-15 12:41 | RAD ---
Date of service: 09/15/2018 HISTORY: cp, htn COMPARISON: 06/30/2018 TECHNIQUE: Chest PA and lateral views FINDINGS: LUNGS: No active pulmonary disease. PLEURA: No significant pleural effusion identified. No pneumothorax apparent. CARDIOVASCULAR: No aortic atherosclerotic calcification present. Normal cardiac size. No pulmonary vascular congestion. OSSEOUS STRUCTURES: No significant abnormalities. VISUALIZED UPPER ABDOMEN: Normal. OTHER FINDINGS: None. IMPRESSION: No active disease.
[2018-09-15 13:03] VITALS: TEMP 98.2
--- NOTE | 2018-09-15 13:53 | CT ---
Date of service: 09/15/2018 PROCEDURE: CT HEAD WITHOUT CONTRAST. HISTORY: headache COMPARISON: 02/19/2018 TECHNIQUE: Axial computed tomography images were obtained through the head/brain without intravenous contrast. Radiation dose: Total exam DLP = 909.84 mGy-cm. This CT exam was performed using one or more of the following dose reduction techniques: Automated exposure control, adjustment of the mA and/or kV according to patient size, and/or use of iterative reconstruction technique. FINDINGS: HEMORRHAGE: No intracranial hemorrhage. BRAIN: No mass effect or edema. No atrophy or chronic microvascular ischemic changes. VENTRICLES: Unremarkable. No hydrocephalus. CALVARIUM: Unremarkable. PARANASAL SINUSES: Unremarkable as visualized. No significant inflammatory changes. MASTOID AIR CELLS: Unremarkable as visualized. No inflammatory changes. OTHER FINDINGS: None. IMPRESSION: Normal CT of the Head.
[2018-09-15 14:06] VITALS: PULSE 87
[2018-09-15 14:16] VITALS: BP 161/95; RESP 17
--- NOTE | 2018-09-15 14:57 | CARD ---
APPROVED REPORT Date of service: 09/15/2018 EKG Measurement Heart [id number] <Conclusion> Normal sinus rhythm Normal ECG
== END 2018-09-15 14:38 | disposition home or self-care (01) ==
LOC: ED 10:28
DX: I10 Essential (primary) hypertension (principal); R07.9 Chest pain, unspecified; R51 Headache